=== PATIENT | female | born 1990 | race Caucasian/White ===

== ENCOUNTER 2022-08-27 01:09 | Emergency (ER) | payer OTHER, SELFPAY ==
[2022-08-27 01:16] VITALS: BP 116/78; PULSE 87; RESP 16; TEMP 36.3; O2SAT 98; BMI 31.1
--- NOTE | 2022-08-27 01:36 | ED.ABDPAIN ---
HPI - Abdominal Pain General Chief Complaint: Abdominal Pain Stated Complaint: Abdominal Pain Time Seen by Provider: 08/27/22 01:29 Source: patient Mode of arrival: ambulatory Limitations: no limitations History of Present Illness HPI narrative: Patient otherwise healthy status post cholecystectomy in 2019 comes here for epigastric and left upper abdominal pain since 20:30 with nausea and diarrhea. Fever no chills no urinary symptoms no other family member sick no travel or bad food ingestion Related Data Previous Rx's Medication Instructions Recorded cefuroxime axetil 250 mg tablet 250 mg PO BID 7 days #14 tabs 08/27/22 dicyclomine 20 mg tablet 20 mg PO QID PRN abdominal pain 08/27/22 #20 tabs ondansetron 4 mg disintegrating 4 mg PO Q6-8H PRN nausea and 08/27/22 tablet vomiting #7 tabs Allergies Allergy/AdvReac Type Severity Reaction Status Date / Time acetaminophen [Vicodin] Allergy Unknown vomiting Verified 07/19/19 00:00 doxycycline [DOXYCYCLINE] Allergy Unknown STOMACH Unverified 04/05/20 19:47 PAINS hydrocodone [From VICODIN] Allergy Unknown NAUSEA & Unverified 04/05/20 19:47 VOMITING ibuprofen [IBUPROFEN] Allergy Unknown HIVES, Unverified 04/05/20 19:47 SWELLING, hives nickel [NICKEL] Allergy Unknown RASH Unverified 04/05/20 19:47 Doxycycline Hyclate Allergy Unknown stomach Uncoded 07/19/19 00:00 upset Review of Systems Review of Systems Yes all other systems are reviewed and are negative PMFSH Social History Social History Alcohol intake: never Smoked in Last 30 Days: No Use of substances other than those prescribed or required for medical reasons: No Advance Directives: No Advance Directives Information Provided: Yes Physical Exam ED Vital Signs: Vital Signs - 24 hr 08/27/22 01:16 Temperature 97.4 F Pulse Rate 87 Respiratory Rate 16 Blood Pressure 116/78 Pulse Oximetry 98 Oxygen Delivery Method Room Air BMI result Body Mass Index 31.1 Appearance: Alert. Oriented X3. No acute distress. Eyes: No pallor or icterus ENT: Pharynx normal. Oral Mucosa moist Neck: Normal inspection. Neck supple. CVS: Normal heart rate and rhythm. Pulses normal. Respiratory: No respiratory distress. Equal air entry bilateral, no wheezing/rales/rhonchi Abdomen: Soft , mild tenderness left upper abdomen and epigastric area Bowel sounds are present, no mass palpable, no CVA tenderness Skin: Skin warm and dry. Normal skin color. Normal skin turgor. Extremities: No lower extremity edema. No calf tenderness Neuro: Oriented X 3. Medical Decision Making Medical Decision Making [facility] Narrative: Patient with acute gastroenteritis labs are stable with normal WBC count noticed incidental mild UTI without much bacteria will give her Zofran and Bentyl and Ceftin discharge patient home patient able to take p.o. fluids now Lab Data [facility] Lab Attestation statement: I reviewed the patient's lab results. 08/27/22 01:08/27/22 01: Labs: Lab Results 08/27/22 08/27/22 08/27/22 Range/Units : 01: 03:00 WBC 7.9 (4.8-10.8) X10*3/uL RBC 4.73 (4.20-5.50) X10*6/uL Hgb 14.0 (12.0-16.0) g/dl Hct 41.7 (37.0-47.0) % MCV 88.2 (80.0-98.0) fL MCH 29.6 (27.0-33.0) pg MCHC 33.6 (31.0-35.0) g/dl RDW 12.5 (11.0-16.0) % Plt Count 194 (160-400) X10*3/uL MPV 11.3 (9.4-12.3) fL Absolute Nucleated RBC 0.000 (0.0-0.012) X10*3/uL Nucleated RBC % (auto) 0.0 (0.0-0.2) /100WBC Sodium 139 (135-145) mmol/L Potassium 4.3 (3.3-5.1) mmol/L Chloride 107 (96-108) mmol/L Carbon Dioxide 19 L (22-29) mmol/L Anion Gap 17 (12-20) BUN 13 (9-16) mg/dL Creatinine 0.82 (0.5-1.4) mg/dL Estim Creat Clear Calc 90.3 Estimated GFR > 60 Random Glucose 132 H (60-115) mg/dL Calcium 9.0 (8.4-10.2) mg/dL Total Bilirubin 0.5 (0.0-1.0) mg/dL Direct Bilirubin < 0.2 (0.0-0.5) mg/dL AST 16 (5-31) U/L ALT 19 (0-31) U/L Alkaline Phosphatase 87 (39-117) U/L Total Protein 6.9 (6.5-8.0) g/dL Albumin 4.1 (3.5-5.0) g/dL Lipase 15 (8-78) U/L Urine Color Yellow Urine Appearance Clear Urine pH 5.5 (5.0-9.0) Ur Specific [place] 1.025 (1.005-1.025) Urine Protein Negative (Neg-Trace) mg/dL Urine Glucose (UA) Negative (Negative) mg/dL Urine Ketones 15 (Negative) mg/dL Urine Blood Negative (Negative) Urine Nitrite Negative (Negative) Ur Leukocyte Esterase Small (1+) H (Negative) Urine RBC 0-2 (0-2) /HPF Urine WBC 6-10 H (0-5) /HPF Urine WBC Clumps Ur Squamous Epith Cells 6-10 (0-2) /HPF Ur Transition Epith Cell Ur Renal Epithelial Cell Calcium Oxalate Crystal Leucine Crystals Cystine Crystals Tyrosine Crystals Other Crystals Urine Bacteria None Seen (None Seen) Urine Parasites Bilirubin Casts Epithelial Casts Fatty Casts Hyaline Casts 0-2 (0-2) /LPF Granular Casts Waxy Casts Broad Casts RBC Casts WBC Casts Other Casts Urine Trichomonas Urine Yeast Urine Test (NEGATIVE) 08/27/22 08/27/22 Range/Units 03:00 03:00 WBC (4.8-10.8) X10*3/uL RBC (4.20-5.50) X10*6/uL Hgb (12.0-16.0) g/dl Hct (37.0-47.0) % MCV (80.0-98.0) fL MCH (27.0-33.0) pg MCHC (31.0-35.0) g/dl RDW (11.0-16.0) % Plt Count (160-400) X10*3/uL MPV (9.4-12.3) fL Absolute Nucleated RBC (0.0-0.012) X10*3/uL Nucleated RBC % (auto) (0.0-0.2) /100WBC Sodium (135-145) mmol/L Potassium (3.3-5.1) mmol/L Chloride (96-108) mmol/L Carbon Dioxide (22-29) mmol/L Anion Gap (12-20) BUN (9-16) mg/dL Creatinine (0.5-1.4) mg/dL Estim Creat Clear Calc Estimated GFR Random Glucose (60-115) mg/dL Calcium (8.4-10.2) mg/dL Total Bilirubin (0.0-1.0) mg/dL Direct Bilirubin (0.0-0.5) mg/dL AST (5-31) U/L ALT (0-31) U/L Alkaline Phosphatase (39-117) U/L Total Protein (6.5-8.0) g/dL Albumin (3.5-5.0) g/dL Lipase (8-78) U/L Urine Color Cancelled Urine Appearance Cancelled Urine pH Cancelled (5.0-9.0) Ur Specific [place] Cancelled (1.005-1.025) Urine Protein Cancelled (Neg-Trace) mg/dL Urine Glucose (UA) Cancelled (Negative) mg/dL Urine Ketones Cancelled (Negative) mg/dL Urine Blood Cancelled (Negative) Urine Nitrite Cancelled (Negative) Ur Leukocyte Esterase Cancelled (Negative) Urine RBC Cancelled (0-2) /HPF Urine WBC Cancelled (0-5) /HPF Urine WBC Clumps Cancelled Ur Squamous Epith Cells Cancelled (0-2) /HPF Ur Transition Epith Cell Cancelled Ur Renal Epithelial Cell Cancelled Calcium Oxalate Crystal Cancelled Leucine Crystals Cancelled Cystine Crystals Cancelled Tyrosine Crystals Cancelled Other Crystals Cancelled Urine Bacteria Cancelled (None Seen) Urine Parasites Cancelled Bilirubin Casts Cancelled Epithelial Casts Cancelled Fatty Casts Cancelled Hyaline Casts Cancelled (0-2) /LPF Granular Casts Cancelled Waxy Casts Cancelled Broad Casts Cancelled RBC Casts Cancelled WBC Casts Cancelled Other Casts Cancelled Urine Trichomonas Cancelled Urine Yeast Cancelled Urine Test NEGATIVE (NEGATIVE) Medications Administered Discontinued Medications Generic Name Dose Route Start Last Admin Trade Name Freq PRN Reason Stop Dose Admin Al Hydroxide/Mg Hydroxide 30 ml 08/27/22 02:43 08/27/22 02:49 Magnesium Hydrox/Alum Hydrox 30 Ml Oral.Susp PO 08/27/22 02:44 30 ml ONCE ONE Administration Cefuroxime Axetil 250 mg 08/27/22 04:07 08/27/22 04:17 Cefuroxime Axetil 250 Mg Tablet PO 08/27/22 04:08 250 mg ONCE ONE Administration Dicyclomine HCl 20 mg 08/27/22 04:07 08/27/22 04:17 Dicyclomine Hcl 10 Mg Capsule PO 08/27/22 04:08 20 mg ONCE ONE Administration Famotidine 20 mg 08/27/22 01:36 08/27/22 01:54 Famotidine/Pf 20 Mg/2 Ml Vial IVPUSH 08/27/22 01:37 20 mg ONCE ONE Administration Sodium Chloride 1,000 mls @ 999 mls/hr 08/27/22 01:36 08/27/22 02:49 Ns IV 08/27/22 02:36 Infused .Q1H1M ONE Infusion Lidocaine HCl 15 ml 08/27/22 02:43 08/27/22 02:49 Lidocaine Hcl Viscous 2 % 15 Ml Solution MUCOUS MEM 08/27/22 02:44 15 ml ONCE ONE Administration Ondansetron HCl 4 mg 08/27/22 03:10 08/27/22 03:16 Ondansetron Hcl 4 Mg/2 Ml Vial IVPUSH 08/27/22 03:11 4 mg ONCE ONE Administration Discharge Plan Discharge Clinical Impression: Gastroenteritis, UTI (urinary tract infection) Patient Disposition: Home, Self-Care Instructions: Urinary Tract Infection in Women (ED), Gastroenteritis (ED) Additional Instructions: Drink plenty of fluids Med for nausea and antibiotic for urinary tract infection as prescribed Follow with PCP if not better Prescriptions: New cefuroxime axetil 250 mg tablet 250 mg PO BID 7 Days Qty: 14 0RF dicyclomine 20 mg tablet 20 mg PO QID PRN (Reason: abdominal pain) Qty: 20 0RF ondansetron 4 mg tablet,disintegrating 4 mg PO Q6-8H PRN (Reason: nausea and vomiting) Qty: 7 0RF
[2022-08-27 01:37] LABS: Hematocrit 41.7 % (37.0-47.0); Mean Corpuscular HGB Conc 33.6 g/dl (31.0-35.0); Mean Corpuscular Hemoglobin 29.6 pg (27.0-33.0); Mean Corpuscular Volume 88.2 fL (80.0-98.0); Mean Platelet Volume 11.3 fL (9.4-12.3); Platelet Count 194 X10*3/uL (160-400); Red Blood Count 4.73 X10*6/uL (4.20-5.50); Red Cell Distribution Width 12.5 % (11.0-16.0); White Blood Count 7.9 X10*3/uL (4.8-10.8)
[2022-08-27 01:52] LABS: Alanine Aminotransferase 19 U/L (0-31); Albumin Level 4.1 g/dL (3.5-5.0); Alkaline Phosphatase 87 U/L (39-117); Anion Gap 17 (12-20); Aspartate Amino Transferase 16 U/L (5-31); Bilirubin Direct < 0.2 mg/dL (0.0-0.5); Bilirubin Total 0.5 mg/dL (0.0-1.0); Blood Urea Nitrogen 13 mg/dL (9-16); Carbon Dioxide 19 mmol/L (22-29); Chloride 107 mmol/L (96-108); Creatinine Clr Calc Pharmacy 90.3; Estimated Glomerular Filt Rate > 60; Glucose Random 132 mg/dL (60-115); Lipase 15 U/L (8-78); Potassium 4.3 mmol/L (3.3-5.1); Sodium 139 mmol/L (135-145); Total Protein 6.9 g/dL (6.5-8.0)
[2022-08-27] MEDS: Famotidine/PF 20 MG/2 ML VIAL IVPUSH (01:54)
[2022-08-27] MEDS: 0.9 % Sodium Chloride 1,000 ML 999 ML IV (01:54)
[2022-08-27] MEDS: Lidocaine HCl Viscous 2 % 15 ML SOLUTION MUCOUS MEM (02:49)
[2022-08-27] MEDS: Magnesium Hydrox/Alum Hydrox 30 ML ORAL.SUSP PO (02:49)
[2022-08-27 03:11] LABS: UPreg QC Valid YES; Urine Pregnancy NEGATIVE (NEGATIVE)
[2022-08-27] MEDS: ondansetron HCL 4 MG/2 ML VIAL IVPUSH (03:16)
--- NOTE | 2022-08-27 03:18 | PC.NURSE ---
pt reassessed after the administration of medications. pt c/o no pain relief and mild to moderate nausea. Dr. simon. shey ivp administration will continue to monitor
[2022-08-27 03:37] LABS: Appearance Urine Clear; Color Urine Yellow; Glucose Urine UA Negative (Negative); Leukocyte Esterase Urine Small (1+) (Negative); Nitrite Urine Negative (Negative); PH 5.5 (5.0-9.0); Specific Gravity - Urine 1.025 (1.005-1.025); UMIC TRIGGER UACC YES; Urine Blood Negative (Negative); Urine Ketones 15 mg/dL (Negative); Urine Protein Negative (Neg-Trace)
[2022-08-27 03:40] LABS: Bacteria Urine None Seen (None Seen); Hyaline Casts Urine 0-2 /LPF (0-2); RBC Urine 0-2 /HPF (0-2); UACC Culture Trigger YES
[2022-08-27] MEDS: Dicyclomine HCl 10 MG CAPSULE 20 MG PO (04:17)
--- NOTE | 2022-08-27 04:27 | PC.NURSE ---
pt reassessed reported mild nausea w/o vomiting and upper abd pain
--- NOTE | 2022-08-27 05:04 | PC.NURSE ---
po challenged started
== END 2022-08-27 05:22 | disposition home or self-care (01) ==
PROVIDERS: Emergency Provider Internal Medicine; PCP Internal Medicine
DX: K52.9 Noninfective gastroenteritis and colitis, unspecified (principal); N39.0 Urinary tract infection, site not specified
CPT/HCPCS: 36415; 80053; 81001; 81025; 82248; 83690; 85027; 87086; 96361; 96374; 96375; 99284; J2405

== ENCOUNTER 2023-07-10 10:00 | Outpatient (RCR) | payer OTHER, SELFPAY | END 2023-09-04 07:37 | disposition home or self-care (01) | LOC: HO.PT 10:00 | PROVIDERS: PCP Physician Assistant; Visit Provider Physician Assistant | DX: M54.16 Radiculopathy, lumbar region (principal) | CPT/HCPCS: 97110; 97140; 97161; 97535 ==

== ENCOUNTER 2023-07-27 14:35 | Outpatient (REF) | payer OTHER, SELFPAY ==
--- NOTE | ~2023-07-27 | XR_ITS ---
EXAMINATION: XR LUMBOSACRAL SPINE CLINICAL INFORMATION: Low back pain with left leg radiculopathy COMPARISON: None available. TECHNIQUE: Three views of the lumbosacral spine. FINDINGS: There is straightening of lumbar lordosis. There are 5 nonrib-bearing vertebral bodies and lumbar spine. There is mild deformities of T12 and L1 with marginal spurring and prominent Schmorl's hernia seen at the T11, T12, L1, L2. There is marginal spurring at the endplates of L2-L5 as well but disc spaces are preserved and there is no spondylolysis or listhesis. Pedicles are intact and sacroiliac joints unremarkable. Soft tissues are normal. XR/XR lumbar spine 2-3V IMPRESSION: Mild degenerative changes, most likely muscle spasm
== END 2023-07-27 14:36 | disposition home or self-care (01) ==
LOC: HO.XRAY 14:35
PROVIDERS: PCP Physician Assistant; Visit Provider Physician Assistant
DX: M54.50 Low back pain, unspecified (principal)
CPT/HCPCS: 72100

== ENCOUNTER 2023-08-14 19:07 | Outpatient (REF) | payer OTHER, SELFPAY ==
--- NOTE | ~2023-08-14 | MR_ITS ---
EXAMINATION: MR LUMBAR SPINE WITHOUT CONTRAST CLINICAL INFORMATION: A 33-year-old with left leg pain. Self-reported low back and left leg pain. COMPARISON: 07/27/2023 X-rays. TECHNIQUE: MRI of the lumbar spine was obtained using routine sequences without contrast. FINDINGS: CORONAL ALIGNMENT: Khfe-gf-wmnmypmk thoracolumbar levocurvature, convex to the left at T12-L1. SAGITTAL ALIGNMENT: There is 2 mm of retrolisthesis at L3-L4 and there is trace retrolisthesis at L4-L5 with otherwise normal lumbar lordotic curvature. LUMBOSACRAL JUNCTION: Normal. VERTEBRAL BODIES: Redemonstrated is mild chronic anterior wedging of the L1 vertebral body, and zfqx-ig-mzjlyuyk chronic anterior wedging of the T12 vertebral body, similar to the previous X-rays. Otherwise, vertebral body heights are well maintained. There are no acute or non-healed fractures. DISC SPACES AND ENDPLATES: There is moderate intervertebral disc space height loss at L5-S1 with disc desiccation. Uzug-pt-iwxpktfu disc space height loss at L4-L5 with disc desiccation. Mild disc volume loss also noted L3-L4 with disc desiccation and minor anterior marginal endplate spurring. There is a tiny Schmorl's node along the inferior endplate of L2 and there is minor spondylosis. There is mild disc volume loss with disc desiccation, Schmorl's nodes and spondylosis at L1-L2. There are Schmorl's nodes noted anteriorly at T12-L1, with anterior marginal spurring at this level, and there is a Schmorl's node along the superior endplate of T12, with anterior marginal endplate spurring at T11-T12. There is a partially imaged Schmorl's node along the superior endplate of T11 with anterior marginal endplate spurring of the superior endplate. In conjunction with the above findings, these findings are consistent with Scheuermann's disease. SPINAL CANAL: No abnormal developmental findings. BONE MARROW: No significant marrow-replacing process or bone marrow edema. CONUS MEDULLARIS: Terminates at T12. Morphology and signal is normal. INTRADURAL NERVE ROOTS: Within normal limits. L5-S1: Central to left subarticular disc herniation, with a caudally migrated extruded component in the subarticular zone, impinging on the left S1 nerve root with posterior displacement of the nerve root and marked narrowing of the left subarticular recess, with encroachment on the lateral recess as well. Mild indentation of the ventral thecal sac is noted without significant central spinal canal stenosis. There is mild facet arthropathy bilaterally with minor foraminal narrowing on the left. L4-L5: Mild retrolisthesis is noted with concentric disc bulging and a superimposed esrnubg-lv-phwpu paramedian extruded disc herniation, with mild cephalad migration, also encroaching on the right inferior neural foramen. Mild flattening of the dural sac is noted without significant canal stenosis. Mild facet hypertrophic changes are noted bilaterally with minimal foraminal narrowing on the right. Disc protrusion contacts the foraminal segment of the right L4 nerve root sleeve. L3-L4: Retrolisthesis, disc bulging, and a superimposed right-sided foraminal/extraforaminal disc herniation with an annular fissure noted impinges on the exiting right L3 nerve root. Mild facet hypertrophic change bilaterally without canal stenosis. Igme-hb-uxzrocgq right-sided foraminal narrowing noted. L2-L3: Mild left posterolateral disc protrusion. Mild facet hypertrophic change on the left. No canal or foraminal stenosis. L1-L2: Small right paramedian disc protrusion without neural impingement. Small left foraminal disc protrusion without neural impingement. No facet arthrosis, canal, or foraminal stenosis. T12-L1: Small left subarticular to inferior foraminal disc protrusion without neural impingement. Small right paramedian disc protrusion. No facet arthrosis, canal or foraminal stenosis. PARAVERTEBRAL AND INCLUDED EXTRASPINAL SOFT TISSUES: The visualized paravertebral soft tissues and included retroperitoneal structures are unremarkable within the limitations of the exam. MR/MR lumbar spine wo con IMPRESSION: 1. Uyky-zt-ailqqyun thoracolumbar levocurvature, convex to the left at T12-L1 with mild retrolisthesis at L3-L4 and trace retrolisthesis at L4-L5. 2. Multilevel discogenic degenerative changes, with multilevel spondylosis and disc bulging, with a invnblg-ss-jtlp subarticular extruded disc herniation with caudal migration at L5-S1 impinging on the left S1 nerve root. 3. Mqlduwv-ba-musaf paramedian extruded disc herniation at L4-L5 with disc bulging contacting the foraminal segment of the right L4 nerve root. 4. Right lateral foraminal/extraforaminal disc herniation at L3-L4 impinging on the exiting right L3 nerve root. 5. Thoracolumbar Scheuermann's disease as described above.
== END 2023-08-14 19:08 | disposition home or self-care (01) ==
LOC: HO.MRI 19:07
PROVIDERS: PCP Physician Assistant; Visit Provider Physician Assistant
DX: M54.50 Low back pain, unspecified (principal)
CPT/HCPCS: 72148

== ENCOUNTER 2023-09-15 13:54 | Outpatient (AMB) | payer OTHER, SELFPAY ==
--- NOTE | 2023-09-15 14:12 | A.SPINEOV_ITS ---
Intake Intake Visit Reasons: herniated disc/second opinion Intake Note: Ms. Davis is here today for Sciatic nerve pain that radiates down to behind her knees. Business Services Intern Required: No Allergies acetaminophen [Vicodin] Allergy (Unknown, Verified 07/19/19 00:00) vomiting doxycycline [DOXYCYCLINE] Allergy (Unknown, Unverified 04/05/20 19:47) STOMACH PAINS hydrocodone [From VICODIN] Allergy (Unknown, Unverified 04/05/20 19:47) NAUSEA & VOMITING ibuprofen [IBUPROFEN] Allergy (Unknown, Unverified 04/05/20 19:47) HIVES, SWELLING, hives nickel [NICKEL] Allergy (Unknown, Unverified 04/05/20 19:47) RASH Doxycycline Hyclate Allergy (Unknown, Uncoded 07/19/19 00:00) stomach upset Assessment & Plan Assessment & Plan (1) Lumbar disc herniation: Code(s): M51.26 - Other intervertebral disc displacement, lumbar region Plan Dear Kiah, I saw Mrs. Davis in the office today for evaluation. She is a 33-year-old female who has had on and off issues with her back for years, but for the last 2 years or so she has had intermittent radiculopathy going down the back of her left leg into her hamstring toward her calf. At times the pain can be manageable but at other times it can be severe. She would rate it at its worst at 9/10. She tried conservative treatment in the form of tincture of time, activity modifications, swrc-njz-pffdifd medications as needed as well as a trial of physical therapy. Physical therapy only seemed to aggravate things. She has a 2-year-old at home, in often she is unable to get on the [place] even play with the child because the pain can be intensified so much by sitting in an uncomfortable position that she is reluctant to do it. She is very frustrated with her quality of life as she has not able to do many of the activities that she finds meaningful. She is here today for 2nd opinion on a herniated disc seen on MRI at [facility] imaging. PMH: History of cholecystectomy, , eye correction surgery in 1989. Social hx: She does not smoke, does not use recreational drugs or alcohol Medications: Wellbutrin, Zyrtec, Singulair, albuterol, multivitamin, stool softener Allergies: Ibuprofen gave her hives and a borderline anaphylactic reaction when she took it years ago, allergy to nickel and seasonal allergies Physical exam: Awake alert oriented no acute distress, gait is normal, strength and reflexes are normal Imaging review: Lumbar MRI done at [facility] in July 2023 reveals a left-sided herniated disc fragment at L5-S1 compressing the left S1 nerve root Impression: 33-year-old female presents for evaluation of a left S1 radiculopathy that has been intermittent but steadily increasing and worsening in intensity over the last few years. It is now affecting her quality of life to the point where she isn't even able to do simple things with her 2-year-old child. She is interested in the idea of surgery. We discussed a left L5-S1 microdiskectomy. Dr. Saab and I reviewed the procedure length including risks and benefits. We quoted 90% success rate for the surgery. Pt was given risk and benefits of surgery including but not limited to infection, hematoma , nerve injury,durotomy, weakness,bowel/bladder injury, persistent pain, recurrent disc herniation as well as the option to continue with conservative treatment and patient wishes to proceed with surgery. Pt is aware they should stop their motrin, aspirin 7 days prior to surgery. All questions were answered to the best of our ability. If there is anything about this patients medical history that we have overlooked or concerns you have about us proceeding with surgery we would appreciate any input you can offer. Thank you for allowing us to care for your patient. The total time spent with this visit with this patient was 45 minutes reviewing history, physical exam, lumbar imaging review, and implementation of treatment plan or further diagnostic testing Crow Saab MD,PhD [facility] Coding Level of Care Code New Pt Level 4 (56841) Diagnoses Lumbar disc herniation M51.26
== END 2023-09-15 15:14 | disposition home or self-care (01) ==
PROVIDERS: PCP Physician Assistant; Visit Provider Physician Assistant
DX: M51.26 Other intervertebral disc displacement, lumbar region (principal)
CPT/HCPCS: 99204

== ENCOUNTER → 2023-09-15 13:54 | Outpatient (BNVA) | payer OTHER, SELFPAY | PROVIDERS: PCP Physician Assistant; Visit Provider Physician Assistant ==

== ENCOUNTER 2023-11-05 09:00 | Day surgery (SDC) | payer OTHER, SELFPAY ==
[2023-10-29 14:12] VITALS: BMI 22.9
[2023-11-05] VITALS (11 sets, daily range): BP systolic 99–113; BP diastolic 57–72; PULSE 61–86; RESP 12–16; TEMP 36.3; O2SAT 95–99
--- NOTE | ~2023-11-05 | FL_ITS ---
EXAMINATION: XR FLUOROSCOPY WITH IMAGES CLINICAL INFORMATION: L5-S1 microlumbar discectomy COMPARISON: MRI lumbar spine 08/14/2023 TECHNIQUE: Fluoroscopy Supervised By: Dr. Saab. Fluoroscopy Time: 2.9 seconds. Cumulative Dose: 0.6577 mGy. DAP: 1.888 Gycm2. Images: 1. FINDINGS: With the patient in a prone position, metallic instrument indicates the L5 vertebral body. FL/FL guidance in OR IMPRESSION: Fluoroscopic guidance was provided for Dr. Saab for L5-S1 microlumbar discectomy.
--- NOTE | 2023-11-05 07:30 | MHC.SHP ---
Pre-Procedural Eval Section A - 24 Hr Update-Section A only Date of Service: 11/05/23 The patient is an INPATIENT: No Changes since office visit: No Cold of Flu in the past 2 weeks, No New Medical Problems, No Changes in Medication and No Patient answered all questions The patient has been examined within 24 hours of the surgical procedure. The History & Physical has been completed within 30 days and I have reviewed it.: No Section B - Complete if H&P > 30 days Chief Complaint: Other intervertebral disc displacement, lumbar reg Allergies: Allergies Allergy/AdvReac Type Severity Reaction Status Date / Time acetaminophen [Vicodin] Allergy Unknown vomiting Verified 07/19/19 00:00 doxycycline [DOXYCYCLINE] Allergy Unknown STOMACH Unverified 04/05/20 19:47 PAINS hydrocodone [From VICODIN] Allergy Unknown NAUSEA & Unverified 04/05/20 19:47 VOMITING ibuprofen [IBUPROFEN] Allergy Unknown HIVES, Unverified 04/05/20 19:47 SWELLING, hives nickel [NICKEL] Allergy Unknown RASH Unverified 04/05/20 19:47 Doxycycline Hyclate Allergy Unknown stomach Uncoded 07/19/19 00:00 upset Review of Systems Sugical H&P ROS: Negative: Constitution, Cardiovascular, Respiratory, Neurological, Psychiatric, Hem-Onc, Allergic/Immunologic, Gastrointestinal, Genitourinary, Musculoskeletal, Integumentary, Endocrine and Eyes/Ears/Nose/Throat Exam Surgical H&P Exam: Not Evaluated: HEENT, Not Evaluated: Heart, Not Evaluated: Lungs, Not Evaluated: Extremities, Not Evaluated: Abdomen, Not Evaluated: Skin and Not Evaluated: Neurological Plan Diagnosis/Plan: Unchanged left L5-S1 microdiskectomy Time Spent With Patient Time: Total time managing care of this patient today _5___ minutes.
--- NOTE | 2023-11-05 10:20 | HO.ANESPROP2 ---
[facility] Active Problems Active Problems: All Active Problems Lumbar disc herniation (Acute) Past Medical History Medical History (Updated 10/29/23 @ 13:44 by Nicole Fay RN) Degenerative arthritis Back pain Depression Asthma Family History Family history of problems with anesthesia: No Surgical History Surgical History (Updated 10/29/23 @ 13:44 by Nicole Fay RN) Hx of wisdom tooth extraction Hx of eye surgery Hx of section Hx of cholecystectomy History of Problems with Anesthesia: No Social History Social History Are you a primary point of care technician to a significant other at home: No Do you presently have visiting nurse or other home services: No Alcohol intake: never Patient Tobacco Use Status: Never used Tobacco Use of substances other than those prescribed or required for medical reasons: No Have you been hit, kicked, punched, or otherwise hurt by someone within the past year? If so, by whom?: No Are you DNR?: No Advance Directives: No Advance Directives Information Provided: Yes Advance Directives on File: No Recently lost weight without trying: No Eating poorly because of decreased appetite: No Nutrition Risks: No Nutritional Risk Patient : No : No Poor oral hygiene: No Meds Allergies Allergy/AdvReac Type Severity Reaction Status Date / Time acetaminophen [Vicodin] Allergy Unknown vomiting Verified 07/19/19 00:00 doxycycline [DOXYCYCLINE] Allergy Unknown STOMACH Unverified 04/05/20 19:47 PAINS hydrocodone [From VICODIN] Allergy Unknown NAUSEA & Unverified 04/05/20 19:47 VOMITING ibuprofen [IBUPROFEN] Allergy Unknown HIVES, Unverified 04/05/20 19:47 SWELLING, hives nickel [NICKEL] Allergy Unknown RASH Unverified 04/05/20 19:47 Doxycycline Hyclate Allergy Unknown stomach Uncoded 07/19/19 00:00 upset Active Medications: Current Medications Cefazolin Sodium/Dextrose (Ancef) 2 gm in 50 mls @ 100 mls/hr IV PREOP ONE Stop: 11/05/23 10:26 Home Medications ?Medication ?Instructions ?Recorded ?Confirmed ?Last Taken ?Type bupropion HCl 300 mg 24 hr tablet, 300 mg PO DAILY 09/15/23 10/29/23 Unknown History extended release albuterol sulfate 90 mcg/actuation 2 puff inhalation Q4H PRN 10/29/23 10/29/23 Unknown History aerosol inhaler Shortness Of Breath Or Wheezing cetirizine 10 mg tablet (Zyrtec) 10 mg PO DAILY 10/29/23 10/29/23 Unknown History docusate sodium 100 mg capsule 100 mg PO BEDTIME 10/29/23 10/29/23 Unknown History (Colace) montelukast 10 mg tablet 10 mg PO BEDTIME 10/29/23 10/29/23 Unknown History multivitamin 1 tab PO DAILY 10/29/23 10/29/23 Unknown History norethindrone 1 mg-ethinyl 1 tab PO DAILY 10/29/23 10/29/23 Unknown History estradiol 20 mcg (21)-iron 75 mg (7) tablet (08/08 (28)) Exam Height,Weight and Vital Signs: Height 5 ft 2 in Weight 56.699 kg Airway Mallampati Class: II TM Dist: >3cm Neck ROM: Full Assessment and Plan Assessment Anesthesia Assessment: Anesthesia Plan Discussed and Chart Reviewed Final Anesthetic Review Family History of Problems with Anesthesia: No History of Problems with Anesthesia: No NPO: Yes ASA Class: II Final Preanesthetic Review: No Changes in Pt Med Stat, Meds/Allgs Chart Reviewed, Consent Obtained/Reviewed and Anes Risks/Benef Reviewed Patient Risk: Intermediate Procedure Risk: Intermediate Anesthetic Plan Anesthetic Plan: GA Disposition: Standard PACU
[2023-11-05 10:28] LABS: UPreg QC Valid YES; Urine Pregnancy NEGATIVE (NEGATIVE)
[2023-11-05] MEDS: methocarbamoL 750 MG TABLET PO (10:51)
[2023-11-05] MEDS: Gabapentin 300 MG CAPSULE PO (10:52)
--- NOTE | 2023-11-05 13:37 | PM.DS ---
DS: Providers Provider Date of Service: 11/05/23 Primary care physician: DONNELL Carlos DS: Summary Time Attestation Discharge Coordination Time (in mins): 15 Quality: Safe Use of Opioids Does Pt have an Active Cancer Diagnosis on the Problem List?: No Quality: Stroke Does the patient have a stroke diagnosis?: No Physical Exam Vital Signs: Vital Signs: BMI result Body Mass Index 22.9 DS: Data Data Completed and Pending Labs on day of discharge: Laboratory Results - last 24 hr 11/05/23 09:58 Urine Test NEGATIVE Discharge Plan Discharge Patient Disposition: Home, Self-Care Referrals: Kiah Castro PA [Primary Care Provider] - 1 Week Discharge Medications: New oxycodone 5 mg tablet 5 mg PO Q8H PRN (Reason: severe pain (scale score 7-10)) Qty: 21 0RF Rx Instructions: Partial Fill upon patient request. Continued multivitamin Tablet 1 tab PO DAILY cetirizine [Zyrtec] 10 mg Tablet 10 mg PO DAILY norethindrone-e.estradiol-iron [Junel FE 08/08 (28)] 1 mg-20 mcg (21)/75 mg (7) tablet 1 tab PO DAILY docusate sodium [Colace] 100 mg Capsule 100 mg PO BEDTIME montelukast 10 mg tablet 10 mg PO BEDTIME albuterol sulfate 90 mcg/actuation HFA aerosol inhaler 2 puff INHALATION Q4H PRN (Reason: Shortness Of Breath Or Wheezing) bupropion HCl 300 mg tablet extended release 24 hr 300 mg PO DAILY Discharge Orders: Discharge Order (Routine); Ordered 11/05/23 Ordered By: Ilir Carolina Diet: Advance to usual diet Activity on Discharge: As tolerated Activity Restrictions/Additional Instructions: After your spinal surgery we ask you to observe the following restrictions/guidelines: Activity: It is normal to feel some discomfort as you increase your activity, but that will improve with time. We ask you avoid heavy lifting or acitivities that cause pain. As a general rule, 8lbs is a safe limit for lifting right after surgery. Walk as much as you feel comfortable but not to exhaustion. You will feel extra tired the first few days after surgery. Stay well hydrated. It is OK to walk up and down stairs You may return to driving when you are off narcotics (such as vicodin, oxycodone, dilaudid, etc), and you are back to normal functional capacity. If you have any concerns please check with office before driving. Return to work is specific to each patient and each surgery, so please speak with your doctor/PA at first follow up. Please bring paperwork such as FMLA at that time if you need it filled out. Medications: We will give you a short supply of narcotics after surgery (usually one weeks worth). If you need more please call the office but do not use more than prescribed. You will need to give our office 48 hours notice if you need narcotics refilled and we do not fill narcotics on weekends or evenings. If you are on a narcotic, it is a good idea to take a stool softener such as colace or senna to avoid constipation If you take blood thinner such as aspirin, Plavix, Coumadin, Effient, Eliquis etc for conditions such as Afib, DVT, Pulmonary embolus, coronary disease, stents etc please speak with your surgeon about specific details as to when you can resume these medications. Follow up: Please call the office, , after surgery to arrange a 3 week follow up for wound check. Wound Care: You may remove your dressing on the first day after surgery. ?You may ?leave open to air. Please do not remove the steri strips underneath. they will fall off on their own in one week. IT IS NORMAL FOR THE WOUND TO OOZE OR BE BLOODY FOR A FEW DAYS AFTER SURGERY. ?IF THIS HAPPENS JUST PLACE NEW DRESSING OVER IT TO AVOID STAINING CLOTHES. You may shower on post op day # 1 We ask that you do not let the water soak the wound. If it does get wet, just towel dry lightly. Please do not scrub your incision or place any type of chemical/ointment on the wound. No tub baths, pools or jacuzzis for one month. If you have any leaking or redness from your wound, or fevers, please call the office. Print Language: Lebanese
--- NOTE | 2023-11-05 13:38 | P.OP_ITS ---
Operative Note Operative Note Date of Service: 11/05/23 Narrative: Preoperative diagnosis: Left S1 lumbar radiculopathy due to disc herniation Postoperative diagnosis: Same Procedure: Left L5-S1 lumbar microdiskectomy with microscope Surgeon: Ben Saab MD, PhD Hiv Prevention Specialist: DONNELL Mendoza This patient is suffering from a left lumbar radiculopathy due to an L5-S1 disc herniation compressing the left S1 nerve root. The patient was offered a lumbar microdiskectomy to decompress the nerve root. The procedure complications were explained. The patient was consented. The patient was brought to the operating room and endotracheally intubated. The patient was turned in a prone position on the Gary frame. Prepping and draping was done followed by time-out. A mid lumbar incision was made followed by release of the paravertebral muscles on the left side to expose the L5-S1 interspace. An intraoperative x-rays obtained to confirm the correct level. The microscope was brought in. A L5 laminotomy was done followed by opening of the flavum ligament. The S1 nerve root was identified and retracted medially to expose the L5-S1 disc space. I was only able to identify a small disc bulge which I removed. The large extruded component had resolved. The S1 nerve root was decompressed adequately. The microscope was removed. Marcaine was injected intramuscularly.The incision was closed in two layers. Steri-Strips used to approximate seizure. An op-site were taken there was used to cover the incision. All sponge and needle counts were correct. Patient was extubated and transported in stable condition to recovery room. this procedure was done with the aid of a physician commercial lines account assistant who performed the initial exposure until the microscope was brought in and performed the closure of the incision. Anesthesia: General Blood loss: 10 mL Complications: None Specimen: None Surgical time: 45 minutes Disposition: Discharge home
[2023-11-05] MEDS: fentaNYL citrate/PF 100 MCG/2 ML VIAL 50 MCG IVPUSH ×2 (14:07→14:28)
[2023-11-05] MEDS: Ondansetron ODT 4 MG TAB.RAPDIS TRANSLINGU (16:37)
== END 2023-11-05 15:39 | disposition home or self-care (01) ==
PROVIDERS: Anesthesiology; PCP Physician Assistant; Visit Provider Neurological Surgery
PROC: (CPT 63030; principal; 2023-11-05 12:00)
DX: M51.26 Other intervertebral disc displacement, lumbar region (principal); M51.16 Intervertebral disc disorders with radiculopathy, lumbar region; M19.90 Unspecified osteoarthritis, unspecified site; J45.909 Unspecified asthma, uncomplicated; F32.A Depression, unspecified; Z79.51 Long term (current) use of inhaled steroids; Z79.899 Other long term (current) drug therapy; Z88.8 Allergy status to other drugs, medicaments and biological substances; Z88.1 Allergy status to other antibiotic agents; Z88.6 Allergy status to analgesic agent; Z98.890 Other specified postprocedural states
CPT/HCPCS: 63030; 81025; J0131; J0690; J1100; J2250; J2405; J2704; J3010

== ENCOUNTER → 2023-11-05 09:00 | Outpatient (BNV) | payer OTHER, SELFPAY | PROVIDERS: PCP Physician Assistant; Visit Provider Neurological Surgery | DX: M51.26 Other intervertebral disc displacement, lumbar region (principal) | CPT/HCPCS: 63030; 99499 ==

== ENCOUNTER 2023-11-26 15:36 | Outpatient (AMB) | payer OTHER, SELFPAY ==
--- NOTE | 2023-11-26 15:38 | HO.SPINEOV ---
Intake Visit Reasons: 1st post op Intake Note: Ms. Davis is here today for her 1st post-op appointment. 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 Allergies doxycycline [DOXYCYCLINE] Allergy (Unknown, Verified 11/05/23 10:50) STOMACH PAINS hydrocodone [From VICODIN] Allergy (Unknown, Verified 11/05/23 10:50) NAUSEA & VOMITING ibuprofen [IBUPROFEN] Allergy (Unknown, Verified 11/05/23 10:50) HIVES, SWELLING, hives nickel [NICKEL] Allergy (Unknown, Verified 11/05/23 10:50) RASH Doxycycline Hyclate Allergy (Unknown, Uncoded 07/19/19 00:00) stomach upset Assessment & Plan Assessment & Plan (1) Lumbar disc herniation: Code(s): M51.26 - Other intervertebral disc displacement, lumbar region Category: Medical Plan Mrs Davis is three weeks out from her L5-S1 microdiskectomy. The pain in her left leg is essentially gone. She will occasionally get a flicker of the symptoms but nothing severe. She has some back soreness and stiffness. Her wound is healed up nicely. At this point she is returned to work and otherwise doing great. We discussed activity guidelines, restrictions and expectations after lumbar microdiskectomy. I told her to give it another 2-3 weeks before she lifts up her 2-year-old child. She can follow up with us on an as-needed basis. Crow Saab MD,PhD [facility] Coding Level of Care Code Global (36594) Diagnoses Lumbar disc herniation M51.26
== END 2023-11-26 16:06 | disposition home or self-care (01) ==
PROVIDERS: PCP Physician Assistant; Visit Provider Physician Assistant
DX: M51.26 Other intervertebral disc displacement, lumbar region (principal)
CPT/HCPCS: 99024

== ENCOUNTER → 2023-11-26 15:36 | Outpatient (BNVA) | payer OTHER, SELFPAY | PROVIDERS: PCP Physician Assistant; Visit Provider Physician Assistant ==

== ENCOUNTER 2024-08-02 10:50 | Outpatient (AMB) | payer OTHER, SELFPAY ==
--- NOTE | 2024-08-02 10:57 | MHC.PC.OV ---
Vital Signs 08/02/24 11:18 Height 5 ft 1 in Weight 152 lb BMI 28.7 BP 102/66 Blood Pressure Location Rt brachial Position Sitting Respiration 12 Pulse 68 Pulse Source Pulse Oximeter Pulse Oximetry (%) 98 Oxygen Delivery Method Room Air Intake Visit Reasons: EST CARE Intake Note: new patient to establish care Voice Teacher Required: No Allergies doxycycline [DOXYCYCLINE] Allergy (Unknown, Verified 08/02/24 11:40) STOMACH PAINS hydrocodone [From VICODIN] Allergy (Unknown, Verified 08/02/24 11:40) NAUSEA & VOMITING ibuprofen [IBUPROFEN] Allergy (Unknown, Verified 08/02/24 11:40) HIVES, SWELLING, hives nickel [NICKEL] Allergy (Unknown, Verified 08/02/24 11:40) RASH Doxycycline Hyclate Allergy (Unknown, Uncoded 08/02/24 11:40) stomach upset Medication List - Last Reconciled 08/02/24 by Susan Patel, SUPERINTENDENT LAUNDRY- albuterol sulfate 90 mcg/actuation 2 puffs inhalation Q4H PRN bupropion HCl XL 300 mg PO DAILY cetirizine (Zyrtec) 10 mg PO DAILY docusate sodium (Colace) 100 mg PO BEDTIME montelukast 10 mg PO BEDTIME multivitamin 1 tab PO DAILY norethindrone-e.estradiol-iron 1 mg-20 mcg (21)/75 mg (7) (08/08 (28)) 1 tab PO DAILY semaglutide (weight loss) (Wegovy) mg subcut Tobacco use date assessed: 08/02/24 Dental Screening Dental Screen Date: 08/02/24 Did you have a dental visit in the last 12 months?: Yes Did you have a dental problem in the last 6 months where you did not have access to dental care?: No Was dental information given to patient?: Patient has dentist HPI HPI Comments History of Present Illness Details 34 y/o F with asthma, obesity, MDD, BING Status post lumbar diskectomy 11/06/2024, status post cholecystectomy, Social with 1 son, Paddy age 2,, works at [employer] in [place] Family history father with high cholesterol and anxiety, mother with stroke, depression and anxiety Health Maintenance Tdap 2021 Flu declined Echo 03/31/2013 Pap smear 09/25/2016 Specialists [facility] specialists Previous PCP [facility] Patience CPE due 03/18/25 The patient is a 34-year-old female presenting with the need to establish care for her existing chronic conditions. She has a history of asthma, which she reports is well-controlled with montelukast (Singulair) and occasional use of an albuterol inhaler, especially in colder weather. Her asthma and allergies require consistent management due to severe reactions to multiple allergens. She underwent a discectomy in October and continues to experience back pain post-surgery. She expresses concern about needing further imaging or additional surgery. Her mental health history includes a longstanding diagnosis of major depression and generalized anxiety, for which she currently takes bupropion. She exhibits hesitancy about changing this medication due to concerns over side effects impacting her quality of life, specifically libido and weight management. The patient has expressed a history of weight management challenges, exacerbated by complications following gallbladder removal, and reports an inability to lose weight despite previous success with intermittent fasting. Additionally, she discussed issues with self-administered semaglutide injections and the cost implications of weight management medications not covered by insurance. Social History - Employed in mental health care, managing a clinic. - with one child, a muc-emf-d-kqly-eaej-iks son. - Reports significant family stress and dynamic; is also anxious. - Previously engaged in weekly therapy for seven years until 2020. - Describes challenges with nutrition; allergic to multiple foods. - Tried various weight loss methods including intermittent fasting and past use of phentermine. exam awake alert NAD RRR LS CTAB Mood and affect appropriate Discussion Notes During this visit, we discussed the continuation of montelukast for asthma and allergy management, supplemented by an as-needed albuterol inhaler. I explained the benefits and potential side effects of initiating metformin for weight management, emphasizing correct administration to minimize gastrointestinal distress. We discussed starting paroxetine alongside bupropion to address generalized anxiety, with a focus on monitoring for side effects such as mild headaches or mental clarity issues. Additionally, I encouraged stopping semaglutide injections bought from unverified sources due to safety concerns. Recommendations for follow-up in six weeks were made to assess the efficacy and tolerability of paroxetine and metformin. I advised signing up for the patient portal for efficient management and communication regarding future health updates. 15 minutes spent Discussing different forms of medications to help with weight loss. Discouraged the use of GLP-1s due to the need to use lifelong, weight gain after discontinuation, cost and cancer risk. Educated about the use of Wellbutrin which can be used in patients without a seizure history. This medication works by blocking out the reward center related to mindless eating. It also has a mild stimulating effect. The side effect profile includes mild anxiety as well as a slight dizzy sensation. Another medication used is metformin, this is a diabetic medication. This medication has GI side effects. But can be very beneficial in aiding with weight loss in patients without diabetes. Topiramate was also discussed. This is a seizure medication with side effect profile that includes need to monitor LFTs as well as blood counts. One of the side effects is weight loss. Another medication, Phentermine is a stimulant/controlled substance. This is an anorexient that is used short-term medication used. =. Finally the use of a medication called Contrave, which is Wellbutrin + naltrexone can be used. The brand name is usually not cover therefore would have to prescribe the 2 medications individually. This medication works just as the Wellbutrin; naltrexone aides in further blocking of the reward center to aide in wt loss. After discussion of the above, the patient wishes to proceed with Metformin, DC GLP1, cont wellbutrin. Plan - Continue montelukast for asthma control and manage allergies with consistent allergen avoidance. - Refill albuterol inhaler for acute asthma symptoms. - Initiate metformin as a potential adjunctive treatment for weight management, advising against use with current semaglutide injections to avoid gastrointestinal side effects. - Prescribe paroxetine to address generalized anxiety, complementing current bupropion therapy. - Conduct routine non-fasting laboratory tests to establish baseline health metrics including complete blood count, metabolic panel, and thyroid function. - Reevaluate the efficacy of Paxil and metformin in six weeks. - Adjust future psychiatric medication regimens as needed while monitoring for side effects. - Maintain regular monitoring of post-discectomy symptoms and continue with current conservative management. Patient was informed and verbally consented to the use of an ambient scribe for clinic note documentation during this visit. Patient Instructions - Continue montelukast and use albuterol as needed for asthma management. - Start taking metformin with food in the evening meal, discontinue semaglutide injections. - Begin paroxetine daily, choosing morning or evening dosage depending on side effects experienced. - Schedule follow-up appointment in six weeks to evaluate the new medication regimen. - Sign up for the patient portal for follow-up communications and results. - Complete laboratory tests as soon as possible for baseline measurements. Total time spent caring for the patient today was 50 minutes. This includes time spent before the visit reviewing the chart, time spent during the visit, and time spent after the visit on documentation This note is constructed using voice recognition software. While every effort has been made to ensure accuracy in joint finisher, still errors may have been included Sometimes, these errors may affect the content or meaning of the given sentence . PFSH Medical History (Updated 08/02/24 @ 16:23 by Susan Patel [facility]) Anxiety Degenerative arthritis Back pain Depression Asthma Surgical History (Updated 08/02/24 @ 11:18 by Trenton Velazquez MA) Previous back surgery Hx of wisdom tooth extraction Hx of eye surgery Hx of section Hx of cholecystectomy Family History (Updated 08/02/24 @ 11:17 by Trenton Velazquez MA) Mother Mental health disorder Asthma Stroke Father Mental health disorder Substance abuse High cholesterol Asthma Maternal Grandmother Cancer Paternal Grandmother Cancer Thyroid disorder Maternal Uncle Cancer Social History (Updated 08/02/24 @ 11:14 by Trenton Velazquez MA) Household Members: Spouse and Children Both parents involved: No Caregiver staying overnight: No Housing: House Are you a primary career development specialist to a significant other at home: Yes Do you presently have visiting nurse or other home services: No 75 years or older and lives alone: No Alcohol intake: current Alcohol intake frequency: a few times a month Patient Tobacco Use Status: Never used Tobacco e-Cigarette/Vaping Use: Never Used Second Hand Smoke Exposure: No Current occupational status: employed Current occupation: [employer] Cognitive needs: No Hearing needs: No Vision needs: Yes (wear glasses) Questionnaire PHQ-9 Over the last 2 weeks, how often have you been bothered by any of the following problems? 1. Little interest or pleasure in doing things: not at all 2. Feeling down, depressed, or hopeless: not at all 3. Trouble falling or staying asleep, or sleeping too much: not at all 4. Feeling tired or having little energy: more than half the days 5. Poor appetite or overeating: several days 6. Feeling bad about yourself - or that you are a failure or have let yourself or your family down: several days 7. Trouble concentrating on things, such as reading the newspaper or watching television: not at all 8. Moving or speaking so slowly that other people could have noticed. Or the opposite - being so fidgety or restless that you have been moving around a lot more than usual: not at all 9. Thoughts that you would be better off or of hurting yourself in some way: not at all Total score: 4 Depression Screening Interpretation: Negative Depression Screening Done: Yes 44320 - PHQ-9 Billing: Yes Source: Developed by Drs. Khurram Garcia, Yecenia Singer, Govind Gandhi and colleagues, with an educational daylin from [employer]. Thrive Questionnaire Date Thrive assessed: 07/26/24 I am a: Patient What is your living situation today?: I have a steady place to live Within the past 12 months, did the food you bought not last and you didn't have the money to get more?: Never true Within the past 12 months, did you worry whether your food would run out before you got money to buy more?: Never true Do you have trouble paying for medicines?: No Do you have trouble getting transportation to medical appointments?: No Do you have trouble paying your heating and electricity bill?: No Do you have trouble taking care of your child, family member or friend?: No Do you have trouble with day-to-day activities such as bathing, preparing meals, shopping, managing finances, etc.?: No Are you currently unemployed and looking for a job?: No Are you interested in more education?: No Please select the resources that you would like help with: None Currently or been in a relationship where the following occur: No concerns reported THRIVE Score: 0 AUDIT C Alcohol Use Questionnaire (AUDIT-C) 1. How often do you have a drink containing alcohol?: Monthly or less 2. How many drinks containing alcohol do you have on a typical day when you are drinking?: 1 or 2 3. How often do you have six or more drinks on one occasion?: Less than monthly Total Score: 2 Score Reviewed/Action Taken: Yes BING-7 AMB Questionnaire BING-7 Date BING - 7 assessed: 01/14/25 Feeling nervous, anxious, or on edge: 1 = Several days Not being able to stop or control worryin = Several days Worrying too much about different things: 1 = Several days Trouble relaxin = More than half the days Being so restless that it is hard to sit still: 0 = Not at all Becoming easily annoyed or irritable: 0 = Not at all Feeling afraid as if something awful might happen: 0 = Not at all Total BING-7 score (0-4 normal; 5-9 mild; 10-14 moderate; 15-21 severe): 5 Source: Developed by Drs. Khurram Garcia, Yecenia Singer, Govind Gandhi and colleagues, with an educational daylin from [employer]. BING-7 Assessment Billing BING-7 Assessment Tool: BING-7 Assessment 28790 ACT Questionnaire In the past 4 weeks, how much of the time did your asthma keep you from getting as much done at work, school or at home?: None of the time During the past 4 weeks, how often have you had shortness of breath?: Not at all During the past 4 weeks, how often did your asthma symptoms wake you up at night or earlier than usual in the morning?: Not at all During the past 4 weeks, how often have you had to use your rescue inhaler or nebulizer medication?: Not at all How would you rate your asthma control during the past 4 weeks?: Completely controlled ACT Interpretation: Negative Score: 25 Physical exam (Primary Care) Vital Signs: Last Vital Signs Pulse 68 08/02/24 11:18 Resp 12 08/02/24 11:18 BP 102/66 08/02/24 11:18 Pulse Ox 98 08/02/24 11:18 Oxygen Delivery Method Room Air 08/02/24 11:18 BMI result Body Mass Index 28.7 Tobacco/Smoking Status: Tobacco use Status Tobacco use date assessed 08/02/24 08/02/24 11:00 Patient Tobacco Use Status Never used Tobacco 08/02/24 11:14 e-Cigarette/Vaping Use Never Used 08/02/24 11:14 PHQ-9: PHQ-9 Score PHQ-9: Total score 4 08/02/24 16:03 Depression Screening Interpretation: Negative Thrive Assessment: Date of Thrive Assessment Date Thrive assessed 01/07/25 01/14/25 10:57 Currently or been in a relationship where the following occur: No concerns reported Office Procedures Office Procedure Misc Details: G0449 15 MINUTE OBESITY EDUCATION Office Procedure Billing Code: AMB Procedure Billing Code (G0449 15 MINUTE OBESITY EDUCATION) Coding Level of Care Code New Pt Level 4 (55346) Complex EM visit Add On G2211 Diagnoses Encounter to establish care Z76.89 BING (generalized anxiety disorder) F41.1 Mild episode of recurrent major depressive disorder F33.0 Major depression episode severity: mild Mild intermittent asthma in adult without complication J45.20 BMI 28.0-28.9,adult Z68.28 Overweight with body mass index (BMI) of 28 to 28.9 in adult E66.3; Z68.28 CPT Codes Office Procedure - Office Procedure Billing Code: AMB Procedure Billing Code ([id number]) Additional Codes Asthma Control Questionnaire - ACT Interpretation: Negative ([id number]) BING-7 Assessment Billing - BING-7 Assessment Tool: BING-7 Assessment 81955 ([id number]) PHQ-9 - 96256 - PHQ-9 Billing: Yes ([id number]) Assessment & Plan Assessment & Plan (1) Encounter to establish care: Code(s): Z76.89 - Persons encountering health services in other specified circumstances Category: Medical (2) BING (generalized anxiety disorder): Code(s): F41.1 - Generalized anxiety disorder Category: Medical (3) MDD (major depressive disorder), recurrent episode: Code(s): F33.9 - Major depressive disorder, recurrent, unspecified Category: Medical Qualifiers: Major depression episode severity: mild Qualified Code(s): F33.0 - Major depressive disorder, recurrent, mild (4) Mild intermittent asthma in adult without complication: Code(s): J45.20 - Mild intermittent asthma, uncomplicated Category: Medical (5) BMI 28.0-28.9,adult: Code(s): Z68.28 - Body mass index [BMI] 28.0-28.9, adult Category: Medical (6) Overweight with body mass index (BMI) of 28 to 28.9 in adult: Code(s): E66.3 - Overweight; Z68.28 - Body mass index [BMI] 28.0-28.9, adult Category: Medical Plan . Orders: Orders Hemoglobin A1c Today Z00.00 - Encounter for general adult medical examination without abnormal findings TSH reflex Free T4 Today Z00.00 - Encounter for general adult medical examination without abnormal findings Complete Blood Count no Diff Today Z00.00 - Encounter for general adult medical examination without abnormal findings Comprehensive Met. Panel Today Z00.00 - Encounter for general adult medical examination without abnormal findings Lipid Panel Today Z00.00 - Encounter for general adult medical examination without abnormal findings Vitamin B12 and Folate Today Z00.00 - Encounter for general adult medical examination without abnormal findings Medications: New paroxetine HCl (Paxil) 10 mg PO DAILY 30 tabs 1RF bupropion HCl XL 300 mg PO DAILY 90 tabs 0RF montelukast 10 mg PO BEDTIME 90 tabs 2RF albuterol sulfate 90 mcg/actuation 2 puffs inhalation Q4H PRN 6.7 grams 2RF Shortness Of Breath Or Wheezing metformin ER 500 mg PO QPM 30 tabs 1RF Patient Instructions: Walk-In Care (Urgent Care): We Make it Easy Walk-in for urgent medical issues such as: ? Seasonal Allergies ? Insect Bites ? Cough ? Diarrhea ? Acute Asthma Attacks ? Back, Knee or Joint Pain ? Ear Infection ? Fever without a Rash ? Headaches ? Nausea ? [place] [facility], Rash or Skin Irritation ? Sore Throat ? Sports Physicals ? Vomiting Most insurances are accepted. Patients do not need to be part of the [facility] to seek care at the walk-in clinic. Locations [facility] , [place] [address] ? [phone] [facility] Walk-In Care in [place] provides services to ages 18 and over. Open Thursday-Thursday: 8 a.m. to 5 p.m. and Thursday: 9 a.m. to 3 p.m.* *Hours may vary due to staffing availability. To confirm Walk-In Care hours in [place], please call [phone]. [address] [place] [address] ? [phone] [facility] Walk-In Care in [place] provides services to ages 12 and over. Open Thursday-Thursday: 8 a.m. to 5 p.m. Hours may vary due to staffing availability. To confirm Walk-In Care hours in [place], please call [phone]. LABORATORY SERVICES: [facility] ? Primary Location [address] [place], [place] [address]day through Thursday 6:00 AM ? 5:00 PM Thursday 7:00 AM ? 11:00 AM* [phone] The [facility] is centrally located near the front entrance of the [facility] for easy outpatient access. Convenient parking is provided for outpatients. *Hours may vary due to staffing availability. To confirm Laboratory hours for any location, please call [phone]. Offsite Location For your convenience, we offer offsite laboratory draw stations at the following locations: [address] [place] [address] ? [facility] [address], [address] Thursday through Thursday 7:30 AM ? 1:00 PM* [phone] *Hours may vary due to staffing availability. To confirm Laboratory hours for any location, please call [phone]. [place] ? [address] Thursday through Thursday 6:00 AM ? 3:30 PM* Thursday 6:30 AM ? 3 PM* [phone] *Hours may vary due to staffing availability. To confirm Laboratory hours for any location, please call [phone]. [address] [facility] Thursday through Thursday 7:30 AM ? 4:00 PM* [phone] *Hours may vary due to staffing availability. To confirm Laboratory hours for any location, please call [phone] [place] [address] Thursday through 9:00 AM ? 4:00 PM* *Hours may vary due to staffing availability. To confirm Laboratory hours for any location, please call [phone]. Appointments are not necessary. Walk-ins are welcome. Like all the departments throughout the [facility], our Lab undergoes frequent reviews to ensure the quality and accuracy of test results, and our staff takes special pride in its status as a nationally accredited facility. Patient Portal: ONE PATIENT. ONE RECORD. BETTER CARE. [facility] has a fully integrated, cutting-edge mobile electronic health information system that has revolutionized the way we care for our patients and manage our organization. This system improves communication and coordination enabling us to provide safe, higher-quality care, and an overall positive experience for staff and patients. Our first priority, as always, is to deliver the highest quality care possible. The system is running in the background supporting that priority. This portal is for all [facility] services and practices. If you are experiencing any technical difficulties with enrolling or logging into the Patient Portal please complete the [facility] Patient Portal Technical Support Form. [facility] now offers a new secure on-line interactive tool for patients to review their health information ? ?Patient Portal. This interactive web portal will enable patients and their families to take an active role in their care by providing easy, secure access to their health information via the internet. The Patient Portal provides patients with instant access to their health information, including laboratory results, medications, allergies, demographic information, visit history, and more. In addition to managing their own care, parents and health care proxies with authorized consent will appreciate the ability to access the records of those individuals for whom they provide care. Please note: if you wish to gain access (Proxy) to another patient?s portal, you will be required to come to the Medical Records Department in person at [facility]. Both the patient giving proxy access and the proxy will need to provide photo identification and complete the appropriate authorization. The Patient Portal also allows track their appointments online. The [facility] Patient Portal also saves patients time by allowing them to submit updates to their demographic and contact information prior to their visits. Portal email notifications will also alert patients to any new activity on their portal, such as test results and new appointments. In order to initially enroll in the [facility] Patient Portal, you will need to enter some required information including the following: your [facility] Medical Record number your personal home email address name date of Please note: In order to enroll in the [facility] Patient Portal, we need to have your email address on file in your electronic medical record. ?The email address needs to be specific for one person (yourself) in order for your Portal enrollment to be successful. ?You can update your email address in person with our Registration staff when you are registering for a hospital visit. ?Otherwise, you will need to come to the Health Information Management (Medical Records) Department at [facility]. ?We are open from Thursday ? Thursday from 7:30 a.m. ? 4:30 p.m. ?You will be required to present a photo id. Once you have successfully enrolled in the Patient Portal, you will receive a one-time user id and password for the Portal, sent to your email address. ?This will allow you to log into the Patient Portal within 99 hrs and reset your own logon id and password, and define personal security questions. ?Once your permanent login and password have been set, you can log into the [facility] Patient Portal at any time via the blue button above or from the Portal Logon button on any page of the [facility] website. [facility] and [facility] encourage all of our patients to enroll in Patient Portal as it presents a valuable opportunity for patients and their families to actively participate in their care and stay healthy Welcome to [facility] [facility] ?We look forward to working with you.
[2024-08-02 11:18] VITALS: BP 102/66; PULSE 68; RESP 12; O2SAT 98; BMI 28.7
== END 2024-08-02 12:03 | disposition home or self-care (01) ==
PROVIDERS: PCP Physician Assistant; Visit Provider Nurse Practitioner Family
DX: Z76.89 Persons encountering health services in other specified circumstances (principal); F41.1 Generalized anxiety disorder; F33.0 Major depressive disorder, recurrent, mild; J45.20 Mild intermittent asthma, uncomplicated; Z68.28 Body mass index [BMI] 28.0-28.9, adult; E66.3 Overweight

== ENCOUNTER → 2024-08-02 10:50 | Outpatient (BNVA) | payer OTHER, SELFPAY | PROVIDERS: PCP Physician Assistant; Visit Provider Nurse Practitioner Family | DX: Z76.89 Persons encountering health services in other specified circumstances (principal); F41.1 Generalized anxiety disorder; F33.0 Major depressive disorder, recurrent, mild; J45.20 Mild intermittent asthma, uncomplicated; E66.3 Overweight; Z68.28 Body mass index [BMI] 28.0-28.9, adult | CPT/HCPCS: 96127; 96160 ==

== ENCOUNTER 2024-08-05 14:53 | Outpatient (REF) | payer OTHER, SELFPAY ==
[2024-08-05 16:09] LABS: Hematocrit 40.3 % (37.0-47.0); Hemoglobin 13.7 g/dl (12.0-16.0); Mean Corpuscular Hemoglobin 31.4 pg (27.0-33.0); Mean Corpuscular Volume 92.4 fL (80.0-98.0); Mean Platelet Volume 11.4 fL (9.4-12.3); Platelet Count 225 X10*3/uL (160-400); Red Blood Count 4.36 X10*6/uL (4.20-5.50); Red Cell Distribution Width 12.1 % (11.0-16.0); White Blood Count 7.2 X10*3/uL (4.8-10.8)
[2024-08-05 16:40] LABS: Estimated Average Glucose 103 mg/dL; Hemoglobin A1c % 5.2 % (<6.0); Total Hemoglobin (HGBA1C) 3592.2073 umol/L
[2024-08-05 17:01] LABS: Alanine Aminotransferase 18 U/L (0-31); Albumin Level 4.1 g/dL (3.5-5.0); Alkaline Phosphatase 66 U/L (39-117); Anion Gap 7 (12-20); Aspartate Amino Transferase 19 U/L (5-31); Bilirubin Total 0.2 mg/dL (0.0-1.0); Blood Urea Nitrogen 13 mg/dL (9-16); Calcium 9.1 mg/dL (8.4-10.2); Carbon Dioxide 27 mmol/L (22-29); Chloride 109 mmol/L (96-108); Cholesterol 212 mg/dL (<200); Estimated Glomerular Filt Rate > 60; Glucose Random 84 mg/dL (60-115); HDL Cholesterol 57 mg/dL (>40); LDL Cholesterol Calculated 132 mg/dL (<100); Potassium 3.9 mmol/L (3.3-5.1); Sodium 139 mmol/L (135-145); Total Protein 7.7 g/dL (6.5-8.0); Triglycerides 119 mg/dL (<150)
[2024-08-05 17:18] LABS: TSH reflex Free T4 1.13 uIU/mL (0.32-4.0)
[2024-08-05 17:22] LABS: Folate 16.5 ng/mL (> or = 4.0); Vitamin B12 452 pg/mL (200-900)
== END 2024-08-05 14:54 | disposition home or self-care (01) ==
LOC: HO.HMGCLDS 14:53
PROVIDERS: PCP Nurse Practitioner Family; Visit Provider Nurse Practitioner Family
DX: Z00.00 Encounter for general adult medical examination without abnormal findings (principal); Z13.1 Encounter for screening for diabetes mellitus
CPT/HCPCS: 36415; 80053; 80061; 82607; 82746; 83036; 84443; 85027

== ENCOUNTER 2024-09-18 02:16 | Emergency (ER) | payer OTHER, SELFPAY ==
[2024-09-18 02:21] VITALS: BP 128/78; PULSE 88; RESP 16; TEMP 36.6; O2SAT 98; BMI 23.1
[2024-09-18 02:39] LABS: MANUAL DIFF FLAG NO
[2024-09-18 02:44] LABS: Basophils Absolute Auto 0.1 X10*3/uL (0.0-0.2); Basophils Percent Auto 0.5 % (0-2); Eosinophils Absolute Auto 0.1 X10*3/uL (0.0-0.4); Eosinophils Percent Auto 0.8 % (0-4); Hematocrit 38.3 % (37.0-47.0); Hemoglobin 13.5 g/dl (12.0-16.0); Imm Gran Abs Auto 0.02 X10*3/uL (0.00-0.03); Imm Gran Pct Auto 0.2 % (0.0-0.4); Lymphocytes Absolute Auto 1.1 X10*3/uL (1.2-4.9); Mean Corpuscular HGB Conc 35.2 g/dl (31.0-35.0); Mean Corpuscular Hemoglobin 31.3 pg (27.0-33.0); Mean Corpuscular Volume 88.9 fL (80.0-98.0); Mean Platelet Volume 10.6 fL (9.4-12.3); Monocytes Absolute Auto 0.8 X10*3/uL (0.1-1.2); Monocytes Percent Auto 8.2 % (2-11); Neutrophils Percent Auto 79.3 % (45-73); Platelet Count 195 X10*3/uL (160-400); Red Blood Count 4.31 X10*6/uL (4.20-5.50); Red Cell Distribution Width 11.9 % (11.0-16.0); White Blood Count 10.1 X10*3/uL (4.8-10.8)
[2024-09-18 02:52] LABS: UPreg QC Valid YES; Urine Pregnancy NEGATIVE (NEGATIVE)
[2024-09-18 02:54] LABS: Appearance Urine Clear; Color Urine Dark Yellow; Glucose Urine UA Negative (Negative); Leukocyte Esterase Urine Trace (Negative); Nitrite Urine Negative (Negative); PH 5.5 (5.0-9.0); Specific Gravity - Urine >= 1.030 (1.005-1.025); UMIC TRIGGER UACC YES; Urine Blood Negative (Negative); Urine Ketones 15 mg/dL (Negative); Urine Protein Trace mg/dL (Neg-Trace)
[2024-09-18 02:56] LABS: Bacteria Urine None Seen (None Seen); Hyaline Casts Urine 0-2 /LPF (0-2); RBC Urine 0-2 /HPF (0-2); UACC Culture Trigger YES
[2024-09-18 03:09] LABS: Alanine Aminotransferase 21 U/L (0-31); Albumin Level 3.9 g/dL (3.5-5.0); Alkaline Phosphatase 72 U/L (39-117); Anion Gap 17 (12-20); Aspartate Amino Transferase 28 U/L (5-31); Bilirubin Total 0.3 mg/dL (0.0-1.0); Blood Urea Nitrogen 14 mg/dL (9-16); Carbon Dioxide 19 mmol/L (22-29); Chloride 108 mmol/L (96-108); Creatinine Clr Calc Pharmacy 77.9; Estimated Glomerular Filt Rate > 60; Glucose Random 138 mg/dL (60-115); Lipase 15 U/L (8-78); Potassium 3.9 mmol/L (3.3-5.1); Sodium 140 mmol/L (135-145); Total Protein 7.7 g/dL (6.5-8.0)
--- NOTE | 2024-09-18 03:15 | ED.ABDPAIN ---
HPI - Abdominal Pain General Chief Complaint: Abdominal Pain Stated Complaint: nausea, abd pain Time Seen by Provider: 09/18/24 03:14 Source: patient Mode of arrival: ambulatory Limitations: no limitations History of Present Illness ED Provider: HPI narrative: Patient is status post cholecystectomy in 2019 comes here for acute onset of upper abdominal pain with nausea vomiting started at 23:30 vomited about 10 times no diarrhea no fever no chills no upper respiratory symptoms no other family member sick denies any bad food intake Related Data Home Medications ?Medication ?Instructions ?Recorded ?Confirmed cetirizine 10 mg tablet (Zyrtec) 10 mg PO DAILY 10/29/23 08/02/24 docusate sodium 100 mg capsule 100 mg PO BEDTIME 10/29/23 08/02/24 (Colace) multivitamin 1 tab PO DAILY 10/29/23 08/02/24 norethindrone 1 mg-ethinyl 1 tab PO DAILY 10/29/23 08/02/24 estradiol 20 mcg (21)-iron 75 mg (7) tablet (June FE 08/08 (28)) Previous Rx's ?Medication ?Instructions ?Recorded albuterol sulfate 90 mcg/actuation 2 puff inhalation Q4H PRN 08/02/24 aerosol inhaler Shortness Of Breath Or Wheezing #6.7 grams bupropion HCl 300 mg 24 hr tablet, 300 mg PO DAILY #90 tabs 08/02/24 extended release metformin 500 mg tablet,extended 500 mg PO QPM #30 tabs 08/02/24 release 24 hr montelukast 10 mg tablet 10 mg PO BEDTIME #90 tabs 08/02/24 paroxetine HCl 10 mg tablet (Paxil) 10 mg PO DAILY #30 tabs 08/02/24 ondansetron 4 mg disintegrating 4 mg PO Q6-8H PRN nausea and 09/18/24 tablet vomiting #7 tabs Allergies Allergy/AdvReac Type Severity Reaction Status Date / Time doxycycline [DOXYCYCLINE] Allergy Unknown STOMACH Verified 09/18/24 02:27 PAINS hydrocodone [From VICODIN] Allergy Unknown NAUSEA & Verified 09/18/24 02:27 VOMITING ibuprofen [IBUPROFEN] Allergy Unknown HIVES, Verified 09/18/24 02:27 SWELLING, hives nickel [NICKEL] Allergy Unknown RASH Verified 09/18/24 02:27 Doxycycline Hyclate Allergy Unknown stomach Uncoded 09/18/24 02:27 upset Review of Systems Review of Systems Yes all other systems are reviewed and are negative [facility] Past Medical History Medical History Anxiety Degenerative arthritis Back pain Depression Asthma Surgical History Previous back surgery Hx of wisdom tooth extraction Hx of eye surgery Hx of section Hx of cholecystectomy Family History Family History Mother Mental health disorder Asthma Stroke Father Mental health disorder Substance abuse High cholesterol Asthma Maternal Grandmother Cancer Paternal Grandmother Cancer Thyroid disorder Maternal Uncle Cancer Social History Social History Household Members: Spouse and Children Housing: House Are you a primary physician primary care sports medicine to a significant other at home: Yes Do you presently have visiting nurse or other home services: No Alcohol intake: current Alcohol intake frequency: holidays/special occasions only Patient Tobacco Use Status: Never used Tobacco Smoked in Last 30 Days: No e-Cigarette/Vaping Use: Never Used Second Hand Smoke Exposure: No Use of substances other than those prescribed or required for medical reasons: No Advance Directives: No Do you have a plan to hurt others: No Plan Current occupational status: employed Current occupation: [employer] Cognitive needs: No Hearing needs: No Vision needs: Yes (wear glasses) Physical Exam ED Vital Signs: Vital Signs - 24 hr 09/18/24 02:21 Temperature 97.8 F Pulse Rate 88 Respiratory Rate 16 Blood Pressure 128/78 Pulse Oximetry 98 Oxygen Delivery Method Room Air BMI result Body Mass Index 23.1 Appearance: Alert. Oriented X3. No acute distress. Eyes: No pallor or icterus ENT: Pharynx normal. Oral Mucosa moist Neck: Normal inspection. Neck supple. CVS: Normal heart rate and rhythm. Pulses normal. Respiratory: No respiratory distress. Equal air entry bilateral, no wheezing/rales/rhonchi Abdomen: Soft and tenderness in epigastric area, Bowel sounds are present, no mass palpable, no CVA tenderness Skin: Skin warm and dry. Normal skin color. Normal skin turgor. Extremities: No lower extremity edema. No calf tenderness Neuro: Oriented X 3. No motor deficit. No sensory deficit.No cerebellar signs , cranial nerves II-XII intact Medical Decision Making Medical Decision Making [facility] Narrative: Patient with abdominal pain with nausea vomiting likely viral labs are stable patient is feeling much better after IV fluids and Zofran discharge patient home Differential Diagnosis Differential Diagnoses: The differential diagnosis associated with the presentation includes UTI/pancreatitis/gastroenteritis Lab Data [facility] Lab Attestation statement: I reviewed the patient's lab results. 09/18/24 02:35 09/18/24 02:35 Labs: Lab Results 09/18/24 09/18/24 Range/Units 02:35 02:42 WBC 10.1 (4.8-10.8) X10*3/uL RBC 4.31 (4.20-5.50) X10*6/uL Hgb 13.5 (12.0-16.0) g/dl Hct 38.3 (37.0-47.0) % MCV 88.9 (80.0-98.0) fL MCH 31.3 (27.0-33.0) pg MCHC 35.2 H (31.0-35.0) g/dl RDW 11.9 (11.0-16.0) % Plt Count 195 (160-400) X10*3/uL MPV 10.6 (9.4-12.3) fL Immature Gran % (Auto) 0.2 (0.0-0.4) % Neut % (Auto) 79.3 H (45-73) % Lymph % (Auto) 11.0 L (20-40) % [place] % (Auto) 8.2 (2-11) % Eos % (Auto) 0.8 (0-4) % Baso % (Auto) 0.5 (0-2) % Lymph # (Auto) 1.1 L (1.2-4.9) X10*3/uL [place] # (Auto) 0.8 (0.1-1.2) X10*3/uL Eos # (Auto) 0.1 (0.0-0.4) X10*3/uL Baso # (Auto) 0.1 (0.0-0.2) X10*3/uL Abs Immat Gran (auto) 0.02 (0.00-0.03) X10*3/uL Absolute Neuts (auto) 8.0 (2.0-8.3) x10*3/uL Absolute Nucleated RBC 0.000 (0.0-0.012) X10*3/uL Nucleated RBC % (auto) 0.0 (0.0-0.2) /100WBC Sodium 140 (135-145) mmol/L Potassium 3.9 (3.3-5.1) mmol/L Chloride 108 (96-108) mmol/L Carbon Dioxide 19 L (22-29) mmol/L Anion Gap 17 (12-20) BUN 14 (9-16) mg/dL Creatinine 0.76 (0.5-1.4) mg/dL Estim Creat Clear Calc 77.9 Estimated GFR > 60 Random Glucose 138 H (60-115) mg/dL Calcium 9.0 (8.4-10.2) mg/dL Total Bilirubin 0.3 (0.0-1.0) mg/dL AST 28 (5-31) U/L ALT 21 (0-31) U/L Alkaline Phosphatase 72 (39-117) U/L Total Protein 7.7 (6.5-8.0) g/dL Albumin 3.9 (3.5-5.0) g/dL Lipase 15 (8-78) U/L Urine Color Dark Yellow Urine Appearance Clear Urine pH 5.5 (5.0-9.0) Ur Specific [place] >= 1.030 H (1.005-1.025) Urine Protein Trace (Neg-Trace) mg/dL Urine Glucose (UA) Negative (Negative) mg/dL Urine Ketones 15 (Negative) mg/dL Urine Blood Negative (Negative) Urine Nitrite Negative (Negative) Ur Leukocyte Esterase Trace H (Negative) Urine RBC 0-2 (0-2) /HPF Urine WBC 6-10 H (0-5) /HPF Ur Squamous Epith Cells 6-10 (0-2) /HPF Urine Bacteria None Seen (None Seen) Hyaline Casts 0-2 (0-2) /LPF Urine Test NEGATIVE (NEGATIVE) Influenza Type A (PCR) NEGATIVE (Negative) Influenza Type B (PCR) NEGATIVE (Negative) RSV RNA Qual (PCR) NEGATIVE (Negative) SARS-CoV-2 RNA (RT-PCR) NEGATIVE (Negative) Medications Administered Discontinued Medications Generic Name Dose Route Start Last Admin Trade Name Freq PRN Reason Stop Dose Admin Sodium Chloride 1,000 mls @ 999 mls/hr 09/18/24 02:44 09/18/24 03:31 Ns IV 09/18/24 03:44 999 mls/hr .Q1H1M ONE Administration Morphine Sulfate 4 mg 09/18/24 03:18 09/18/24 03:31 Morphine Sulfate 4 Mg/Ml Cartridge IVPUSH 09/18/24 03:19 4 mg ONCE ONE Administration Protocol Ondansetron HCl 4 mg 09/18/24 02:44 09/18/24 03:31 Ondansetron Hcl 4 Mg/2 Ml Vial IVPUSH 09/18/24 02:45 4 mg ONCE ONE Administration Discharge Plan Discharge Clinical Impression: Acute nausea with nonbilious vomiting Patient Disposition: Home, Self-Care Instructions: Acute Nausea and Vomiting (ED) Additional Instructions: Drink plenty of fluid Medicine for nausea as prescribed Likely have virus as the cause of nausea vomiting Prescriptions: New ondansetron 4 mg tablet,disintegrating 4 mg PO Q6-8H PRN (Reason: nausea and vomiting) Qty: 7 0RF No Action multivitamin Tablet 1 tab PO DAILY cetirizine [Zyrtec] 10 mg Tablet 10 mg PO DAILY norethindrone-e.estradiol-iron [Junel FE 08/08 ()] 1 mg-20 mcg (21)/75 mg (7) tablet 1 tab PO DAILY docusate sodium [Colace] 100 mg Capsule 100 mg PO BEDTIME paroxetine HCl [Paxil] 10 mg tablet 10 mg PO DAILY Qty: 30 1RF bupropion HCl 300 mg tablet extended release 24 hr 300 mg PO DAILY Qty: 90 0RF metformin 500 mg tablet extended release 24 hr 500 mg PO QPM Qty: 30 1RF montelukast 10 mg tablet 10 mg PO BEDTIME Qty: 90 2RF albuterol sulfate 90 mcg/actuation HFA aerosol inhaler 2 puff INHALATION Q4H PRN (Reason: Shortness Of Breath Or Wheezing) Qty: 6.7 2RF Print Language: Citizen Of [place]
[2024-09-18] MEDS: Morphine Sulfate 4 MG/ML CARTRIDGE IVPUSH (03:31)
[2024-09-18] MEDS: 0.9 % Sodium Chloride 1,000 ML 999 ML IV (03:31)
[2024-09-18] MEDS: ondansetron HCL 4 MG/2 ML VIAL IVPUSH (03:31)
[2024-09-18 03:37] LABS: Influenza A PCR NEGATIVE (Negative); Influenza B PCR NEGATIVE (Negative); Resp Syncy Virus RNA Qual PCR NEGATIVE (Negative); SARS COV2 PCR INHOUSE NEGATIVE (Negative)
[2024-09-18 04:57] VITALS: BP 100/64; PULSE 87; RESP 16; TEMP 36.6; O2SAT 97
== END 2024-09-18 04:59 | disposition home or self-care (01) ==
PROVIDERS: Emergency Provider Internal Medicine; PCP Nurse Practitioner Family
DX: R11.2 Nausea with vomiting, unspecified (principal); R11.14 Bilious vomiting; R10.10 Upper abdominal pain, unspecified; Z03.818 Encounter for observation for suspected exposure to other biological agents ruled out
CPT/HCPCS: 0241U; 36415; 80053; 81001; 81025; 83690; 85025; 87086; 96361; 96374; 96375; 99284; 99285; J2270; J2405

== ENCOUNTER 2024-10-03 15:50 | Outpatient (AMB) | payer OTHER, SELFPAY ==
--- NOTE | 2024-10-03 15:46 | MHC.PC.OV ---
Vital Signs 10/03/24 16:36 Height 5 ft 1 in Intake Visit Reasons: Review new meds Intake Note: telehealth for med review Contract Associate Manager Required: No Allergies doxycycline [DOXYCYCLINE] Allergy (Unknown, Verified 10/03/24 16:31) STOMACH PAINS hydrocodone [From VICODIN] Allergy (Unknown, Verified 10/03/24 16:31) NAUSEA & VOMITING ibuprofen [IBUPROFEN] Allergy (Unknown, Verified 10/03/24 16:31) HIVES, SWELLING, hives nickel [NICKEL] Allergy (Unknown, Verified 10/03/24 16:31) RASH Doxycycline Hyclate Allergy (Unknown, Uncoded 10/03/24 16:31) stomach upset Medication List - Last Reconciled 10/03/24 by Susan Patel, [facility] albuterol sulfate 90 mcg/actuation 2 puffs inhalation Q4H PRN bupropion HCl XL 300 mg PO DAILY cetirizine (Zyrtec) 10 mg PO DAILY docusate sodium (Colace) 100 mg PO BEDTIME metformin ER 500 mg PO QPM montelukast 10 mg PO BEDTIME multivitamin 1 tab PO DAILY norethindrone-e.estradiol-iron 1 mg-20 mcg (21)/75 mg (7) (08/08 (28)) 1 tab PO DAILY ondansetron 4 mg PO Q6-8H PRN paroxetine HCl (Paxil) 10 mg PO DAILY Tobacco use date assessed: 10/03/24 Dental Screening Dental Screen Date: 10/03/24 Did you have a dental visit in the last 12 months?: Yes Did you have a dental problem in the last 6 months where you did not have access to dental care?: No Was dental information given to patient?: Patient has dentist HPI HPI Comments History of Present Illness Details 34 y/o F with asthma, obesity, MDD, BING Status post lumbar diskectomy 11/06/2024, status post cholecystectomy, Social with 1 son, Paddy age 2,, works at [employer] in [place] Family history father with high cholesterol and anxiety, mother with stroke, depression and anxiety Health Maintenance Tdap 2021 Flu declined Echo 03/31/2013 Pap smear 09/25/2016 [facility] Telehealth fu today for MDD/BING and Wt mgmt BING/MDD: paxil good no big changes no side effects cont to take wellbutrin. would like to increase paxil Wt mgmt: tolerating metformin w/o GI side effects. did note some tremors of hands/fingers that started after starting metformin and paxil. denies hypoglycemia otherwise. has not been weighing self at home; reports clothes fit the same; cont to crave sweets. will weight self today at home and send weight via the portal. wonders about increase in this. [place]: [place] [facility] [place] Supportive care.Work up reviewed. Feels better. Reviewed w/ her Labs from 08/05/2024 show a normal CBC, normal electrolytes, normal renal function, hemoglobin A1c of 5.2%, normal LFTs, mild elevation in total cholesterol 212, LDL 132, HDL 57, triglycerides 119, normal B12 folate and TSH Plan Increase paxil from 10mg to 20 mg QD Increase metformin from 500mg to 750mg QD monitor for tremors/shakes/signs of hypoglycemia. alert me right away if this occurs Send me weight via portal RTO 8 weeks to fu on the above, sooner PRN Total time spent caring for the patient today was 30 minutes. This includes time spent before the visit reviewing the chart, time spent during the visit, and time spent after the visit on documentation PFSH Medical History Anxiety Degenerative arthritis Back pain Depression Asthma Surgical History Previous back surgery Hx of wisdom tooth extraction Hx of eye surgery Hx of section Hx of cholecystectomy Family History Mother Mental health disorder Asthma Stroke Father Mental health disorder Substance abuse High cholesterol Asthma Maternal Grandmother Cancer Paternal Grandmother Cancer Thyroid disorder Maternal Uncle Cancer Social History Household Members: Spouse and Children Both parents involved: No Caregiver staying overnight: No Housing: House Are you a primary care center manager to a significant other at home: Yes Do you presently have visiting nurse or other home services: No 75 years or older and lives alone: No Alcohol intake: current Alcohol intake frequency: holidays/special occasions only Patient Tobacco Use Status: Never used Tobacco e-Cigarette/Vaping Use: Never Used Second Hand Smoke Exposure: No Current occupational status: employed Current occupation: [employer] Cognitive needs: No Hearing needs: No Vision needs: Yes (wear glasses) Questionnaire PHQ-9 Over the last 2 weeks, how often have you been bothered by any of the following problems? 1. Little interest or pleasure in doing things: not at all 2. Feeling down, depressed, or hopeless: several days 3. Trouble falling or staying asleep, or sleeping too much: not at all 4. Feeling tired or having little energy: more than half the days 5. Poor appetite or overeating: not at all 6. Feeling bad about yourself - or that you are a failure or have let yourself or your family down: several days 7. Trouble concentrating on things, such as reading the newspaper or watching television: not at all 8. Moving or speaking so slowly that other people could have noticed. Or the opposite - being so fidgety or restless that you have been moving around a lot more than usual: not at all 9. Thoughts that you would be better off or of hurting yourself in some way: not at all Total score: 4 Depression Screening Interpretation: Positive Depression Screening Follow-up: Existing condition and In treatment Depression Screening Done: Yes 17033 - PHQ-9 Billing: Yes Source: Developed by Drs. Khurram Garcia, Yecenia Singer, Govind Gandhi and colleagues, with an educational daylin from [employer]. Thrive Questionnaire Date Thrive assessed: 07/26/24 AUDIT C Alcohol Use Questionnaire (AUDIT-C) 3. How often do you have six or more drinks on one occasion?: Never Total Score: 0 Score Reviewed/Action Taken: Yes BING-7 AMB Questionnaire BING-7 Date BING - 7 assessed: 08/02/24 Feeling nervous, anxious, or on edge: 2 = More than half the days Not being able to stop or control worryin = Not at all Worrying too much about different things: 0 = Not at all Trouble relaxin = More than half the days Being so restless that it is hard to sit still: 0 = Not at all Becoming easily annoyed or irritable: 1 = Several days Feeling afraid as if something awful might happen: 0 = Not at all Total BING-7 score (0-4 normal; 5-9 mild; 10-14 moderate; 15-21 severe): 5 Source: Developed by Drs. Khurram Garcia, Yecenia Singer, Govind Gandhi and colleagues, with an educational daylin from [employer]. BING-7 Assessment Billing BING-7 Assessment Tool: BING-7 Assessment 79632 Physical exam (Primary Care) Tobacco/Smoking Status: Tobacco use Status Tobacco use date assessed 10/03/24 10/03/24 15:48 Patient Tobacco Use Status Never used Tobacco 10/03/24 15:48 e-Cigarette/Vaping Use Never Used 10/03/24 15:48 Depression Screening Interpretation: Positive Depression Screening Follow-up: Existing condition and In treatment Thrive Assessment: Date of Thrive Assessment Date Thrive assessed 07/26/24 10/03/24 15:48 Telehealth Telehealth Telehealth Platform: [facility] Location of provider rendering services: practice address Location of patient: address on file Patient Identification confirmed using: Name, : Yes Telehealth method: video Patient verbally consented to treatment: Yes Patient verbally consented to billing insurance company: Yes Patient informed of any privacy concerns related to visit: Yes Minutes spent on Phone/Video with Pt.: 20 Coding Level of Care Code Tele Est Pt Level 3 (26526) Complex EM visit Add On G2211 Diagnoses BING (generalized anxiety disorder) F41.1 Mild episode of recurrent major depressive disorder F33.0 Major depression episode severity: mild Overweight with body mass index (BMI) of 28 to 28.9 in adult E66.3; Z68.28 BMI 28.0-28.9,adult Z68.28 Hospital discharge follow-up Z09 Additional Codes PHQ-9 - 23919 - PHQ-9 Billing: Yes ([id number]) BING-7 Assessment Billing - BING-7 Assessment Tool: BING-7 Assessment 60553 ([id number]) Assessment & Plan Assessment & Plan (1) BING (generalized anxiety disorder): Code(s): F41.1 - Generalized anxiety disorder Category: Medical (2) MDD (major depressive disorder), recurrent episode: Code(s): F33.9 - Major depressive disorder, recurrent, unspecified Category: Medical Qualifiers: Major depression episode severity: mild Qualified Code(s): F33.0 - Major depressive disorder, recurrent, mild (3) Overweight with body mass index (BMI) of 28 to 28.9 in adult: Code(s): E66.3 - Overweight; Z68.28 - Body mass index [BMI] 28.0-28.9, adult Category: Medical (4) BMI 28.0-28.9,adult: Code(s): Z68.28 - Body mass index [BMI] 28.0-28.9, adult Category: Medical (5) Hospital discharge follow-up: Code(s): Z09 - Encounter for follow-up examination after completed treatment for conditions other than malignant neoplasm Plan . Medications: New paroxetine HCl (Paxil) 20 mg PO DAILY 30 tabs 1RF metformin ER 750 mg PO QPM 30 tabs 1RF Discontinued paroxetine HCl (Paxil) Discontinued Reason: Doctor's Order 10 mg PO DAILY 30 tabs 1RF metformin ER Discontinued Reason: Doctor's Order 500 mg PO QPM 30 tabs 1RF
== END 2024-10-03 16:58 | disposition home or self-care (01) ==
LOC: HO.HMCFM 15:50
PROVIDERS: PCP Nurse Practitioner Family; Visit Provider Nurse Practitioner Family
DX: F41.1 Generalized anxiety disorder (principal); F33.0 Major depressive disorder, recurrent, mild; E66.3 Overweight; Z68.28 Body mass index [BMI] 28.0-28.9, adult; Z09 Encounter for follow-up examination after completed treatment for conditions other than malignant neoplasm

== ENCOUNTER → 2024-10-03 15:50 | Outpatient (BNVA) | payer OTHER, SELFPAY | PROVIDERS: PCP Nurse Practitioner Family; Visit Provider Nurse Practitioner Family | DX: F41.1 Generalized anxiety disorder (principal); F33.0 Major depressive disorder, recurrent, mild; E66.3 Overweight; Z68.28 Body mass index [BMI] 28.0-28.9, adult; Z79.84 Long term (current) use of oral hypoglycemic drugs; Z79.899 Other long term (current) drug therapy | CPT/HCPCS: 96127 ==

== ENCOUNTER 2024-11-21 15:20 | Outpatient (AMB) | payer OTHER, SELFPAY ==
--- NOTE | 2024-11-21 15:23 | MHC.PC.OV ---
Vital Signs 10/05/24 16:16 11/21/24 16:17 Height 5 ft 1 in Weight 149 lb 164 lb BMI 31.0 Intake Visit Reasons: fu paxil and metformin increase bing/wt mgmt Intake Note: Telehealth follow up review meds Courtesy Van Driver Required: No Allergies doxycycline [DOXYCYCLINE] Allergy (Unknown, Verified 11/21/24 15:24) STOMACH PAINS hydrocodone [From VICODIN] Allergy (Unknown, Verified 11/21/24 15:24) NAUSEA & VOMITING ibuprofen [IBUPROFEN] Allergy (Unknown, Verified 11/21/24 15:24) HIVES, SWELLING, hives nickel [NICKEL] Allergy (Unknown, Verified 11/21/24 15:24) RASH Doxycycline Hyclate Allergy (Unknown, Uncoded 10/03/24 16:31) stomach upset Medication List - Last Reconciled 11/21/24 by Susan Patel, [facility]- albuterol sulfate 90 mcg/actuation 2 puffs inhalation Q4H PRN bupropion HCl XL 300 mg PO DAILY cetirizine (Zyrtec) 10 mg PO DAILY docusate sodium (Colace) 100 mg PO BEDTIME metformin ER 750 mg PO QPM montelukast 10 mg PO BEDTIME multivitamin 1 tab PO DAILY norethindrone-e.estradiol-iron 1 mg-20 mcg (21)/75 mg (7) (08/08 (28)) 1 tab PO DAILY ondansetron 4 mg PO Q6-8H PRN paroxetine HCl (Paxil) 20 mg PO DAILY Tobacco use date assessed: 11/21/24 Dental Screening Dental Screen Date: 11/21/24 Did you have a dental visit in the last 12 months?: Yes Did you have a dental problem in the last 6 months where you did not have access to dental care?: No Was dental information given to patient?: Patient has dentist HPI HPI Comments History of Present Illness Details 34 y/o F with asthma, obesity, MDD, BING Status post lumbar diskectomy 11/06/2024, status post cholecystectomy, Social with 1 son, Paddy age 2,, works at [employer] in [place] Family history father with high cholesterol and anxiety, mother with stroke, depression and anxiety Health Maintenance Tdap 2021 Flu declined Echo 03/31/2013 Pap smear 09/25/2016 [facility] History of Present Illness - The patient is a 34-year-old female presenting for mdd/bing and wt mgmt fu - Notable increase in weight from 149.7 lbs in September to 164 lbs currently. - Increased physical activity, consisting of a two-mile walk four to five days weekly, and improved dietary habits noted without the desired impact on weight. - Describes significant frustration over continued weight gain and associated low self-esteem. - Metformin previously used for weight management showed little effect; patient expresses desire to discontinue. - Current medication regimen includes Paroxetine 20 mg with positive anxiety outcomes and ongoing Bupropion for depression. - Expresses interest in a referral to a medical weight management program, highlighting injectables as she has used before from [facility] with + effect - denies chance of . Assessment and Plan 1. Generalized Anxiety Disorder The current management with Paroxetine 20 mg proves effective in reducing anxiety symptoms. The patient feels comfortable with this dosage, describing improved daily task management without adverse effects. Continued prescription is supported with a 90-day supply issued, also continuing Bupropion for depression management. 2. Weight Gain Patient reports significant weight gain despite lifestyle modifications; discontinuation of Metformin is advised as it lacks efficacy. Referral for medical weight management, including possible use of injectables, is discussed. The patient is encouraged to monitor progress and inform of any developments or required adjustments. 3. Referral for Medical Weight Management Patient is referred to a program focusing on non-surgical weight management treatment, considering options like Ozempic and others. The patient?s insurance coverage and program's billing are discussed, directing the patient to follow up with the program for scheduling actions. RTO Aug for CPE sooner PRN Telehealth Attestation This telehealth visit was conducted via phone call, and all the information documented here is based on the telephonic interaction with the patient, ensuring accuracy and completeness in capturing the details discussed. The patient has been explained that this is an interactive (audio/video) telehealth encounter and what that consists of. The patient understands and wishes to proceed. [employer] platform was used. Total time spent caring for the patient today was 21 minutes. This includes time spent before the visit reviewing the chart, time spent during the visit, and time spent after the visit on documentation, reviewing laboratory results, diagnostic imaging, medications, performing a medically necessary evaluation, counseling on diagnoses, care coordination, ordering appropriate tests, ordering appropriate medications, review of tests performed by other providers, reporting test results with the patient, communication with other healthcare providers. [facility] Medical History Anxiety Degenerative arthritis Back pain Depression Asthma Surgical History Previous back surgery Hx of wisdom tooth extraction Hx of eye surgery Hx of section Hx of cholecystectomy Family History Mother Mental health disorder Asthma Stroke Father Mental health disorder Substance abuse High cholesterol Asthma Maternal Grandmother Cancer Paternal Grandmother Cancer Thyroid disorder Maternal Uncle Cancer Social History Household Members: Spouse and Children Both parents involved: No Caregiver staying overnight: No Housing: House Are you a primary overnight caregiver to a significant other at home: Yes Do you presently have visiting nurse or other home services: No 75 years or older and lives alone: No Alcohol intake: current Alcohol intake frequency: holidays/special occasions only Patient Tobacco Use Status: Never used Tobacco e-Cigarette/Vaping Use: Never Used Second Hand Smoke Exposure: No Current occupational status: employed Current occupation: [employer] Cognitive needs: No Hearing needs: No Vision needs: Yes (wear glasses) Questionnaire Thrive Questionnaire Date Thrive assessed: 07/26/24 BING-7 AMB Questionnaire BING-7 Date BING - 7 assessed: 08/02/24 Source: Developed by Drs. Khurram Garcia, Yecenia Singer, Govind Gandhi and colleagues, with an educational daylin from [employer]. Physical exam (Primary Care) BMI result Body Mass Index 31.0 Tobacco/Smoking Status: Tobacco use Status Tobacco use date assessed 11/21/24 11/21/24 15:25 Patient Tobacco Use Status Never used Tobacco 11/21/24 15:25 e-Cigarette/Vaping Use Never Used 11/21/24 15:25 Thrive Assessment: Date of Thrive Assessment Date Thrive assessed 07/26/24 11/21/24 15:25 Telehealth Telehealth Telehealth Platform: [facility] Location of provider rendering services: practice address Location of patient: address on file Patient Identification confirmed using: Name, : Yes Telehealth method: voice only Patient verbally consented to treatment: Yes Patient verbally consented to billing insurance company: Yes Patient informed of any privacy concerns related to visit: Yes Minutes spent on Phone/Video with Pt.: 10 Coding Level of Care Code Tele Est Pt Level 3 (50593) Complex EM visit Add On G2211 Diagnoses BING (generalized anxiety disorder) F41.1 Mild episode of recurrent major depressive disorder F33.0 Major depression episode severity: mild Obesity (BMI 30-39.9) E66.9 Assessment & Plan Assessment & Plan (1) BING (generalized anxiety disorder): Code(s): F41.1 - Generalized anxiety disorder Category: Medical (2) MDD (major depressive disorder), recurrent episode: Code(s): F33.9 - Major depressive disorder, recurrent, unspecified Category: Medical Qualifiers: Major depression episode severity: mild Qualified Code(s): F33.0 - Major depressive disorder, recurrent, mild (3) Obesity (BMI 30-39.9): Code(s): E66.9 - Obesity, unspecified Category: Medical Plan . Orders: Referrals Medical Weight Management Referral E66.9 - Obesity, unspecified Medications: Refilled paroxetine HCl (Paxil) 20 mg PO DAILY 90 tabs 1RF Discontinued metformin ER Discontinued Reason: Doctor's Order 750 mg PO QPM 30 tabs 1RF
[2024-11-21 16:17] VITALS: BMI 31.0
== END 2024-11-21 16:25 | disposition home or self-care (01) ==
LOC: HO.HMCFM 15:20
PROVIDERS: PCP Nurse Practitioner Family; Visit Provider Nurse Practitioner Family
DX: F41.1 Generalized anxiety disorder (principal); F33.0 Major depressive disorder, recurrent, mild; E66.9 Obesity, unspecified; Z68.31 Body mass index [BMI] 31.0-31.9, adult

== ENCOUNTER → 2024-11-21 15:20 | Outpatient (BNVA) | payer OTHER, SELFPAY | PROVIDERS: PCP Nurse Practitioner Family; Visit Provider Nurse Practitioner Family | DX: F41.1 Generalized anxiety disorder (principal); F33.0 Major depressive disorder, recurrent, mild; E66.9 Obesity, unspecified; Z68.31 Body mass index [BMI] 31.0-31.9, adult; Z79.899 Other long term (current) drug therapy | CPT/HCPCS: 98966 ==

== ENCOUNTER → 2024-11-22 09:05 | Outpatient (BNVA) | payer OTHER, SELFPAY | PROVIDERS: PCP Nurse Practitioner Family; Visit Provider Physician Assistant Surgical ==

== ENCOUNTER 2024-12-07 08:12 | Outpatient (AMB) | payer OTHER, SELFPAY ==
--- NOTE | 2024-12-07 12:34 | A.OFFVIS_ITS ---
VS Expanded 12/07/24 13:08 Height 5 ft 1 in Weight 162 lb 6 oz BMI 30.7 Body Fat % 37.6 Body Fat Mass 61 Fat Free Mass 101.4 Visceral Fat Rating 7 Body Water % 44.8 Body Water Mass 72.8 Basal Metabolic Rate/Score 1,416 Intake Visit Reasons: TV [employer] [facility] Allergies doxycycline [DOXYCYCLINE] Allergy (Unknown, Verified 12/07/24 12:34) STOMACH PAINS hydrocodone [From VICODIN] Allergy (Unknown, Verified 12/07/24 12:34) NAUSEA & VOMITING ibuprofen [IBUPROFEN] Allergy (Unknown, Verified 12/07/24 12:34) HIVES, SWELLING, hives nickel [NICKEL] Allergy (Unknown, Verified 12/07/24 12:34) RASH Doxycycline Hyclate Allergy (Unknown, Uncoded 12/07/24 12:34) stomach upset Medication List - Last Reconciled 12/07/24 by Dusty Carver MD albuterol sulfate 90 mcg/actuation 2 puffs inhalation Q4H PRN bupropion HCl XL 300 mg PO DAILY cetirizine (Zyrtec) 10 mg PO DAILY docusate sodium (Colace) 100 mg PO BEDTIME montelukast 10 mg PO BEDTIME multivitamin 1 tab PO DAILY norethindrone-e.estradiol-iron 1 mg-20 mcg (21)/75 mg (7) ( FE 08/08 ()) 1 tab PO DAILY ondansetron 4 mg PO Q6-8H PRN paroxetine HCl (Paxil) 20 mg PO DAILY HPI HPI TV [employer] MWL: Details: Start time: 12.30pm, End time: 13.15 I spent 40 minutes speaking with the patient on the phone plus an additional 5 minutes reviewing and updating records for a total of 45 minutes HPI Comments Details: Previous weight loss efforts: Intermittent fasting self diet and exercise, Phentermine (2 mths at [facility]), Semaglutide (08/11 - 04/12: 50lbs loss from 172lbs to 122lbs), Wegovy (1.7mg and 2.4mg: severe side effects) Wakes up: 6.15am, Sleeps: 10pm Breakfast: skip Lunch: 12-2pm (1-2/wk) Dinner: 6pm (chicken, tuna, vegetables) Snacks: Perfect protein bar or Chombani protein drink, after dinner (ice cream) Exercise: none Beverages: (Coffee: 1 cup/d with creamer), tea: none, soda: none, juice: none, ETOH: / [facility] Medical History Anxiety Degenerative arthritis Back pain Depression Asthma Surgical History Previous back surgery Hx of wisdom tooth extraction Hx of eye surgery Hx of section Hx of cholecystectomy Family History Mother Mental health disorder Asthma Stroke Father Mental health disorder Substance abuse High cholesterol Asthma Maternal Grandmother Cancer Paternal Grandmother Cancer Thyroid disorder Maternal Uncle Cancer Social History Household Members: Spouse and Children Both parents involved: No Caregiver staying overnight: No Housing: House Are you a primary child care development specialist to a significant other at home: Yes Do you presently have visiting nurse or other home services: No 75 years or older and lives alone: No Alcohol intake: current Alcohol intake frequency: holidays/special occasions only Patient Tobacco Use Status: Never used Tobacco e-Cigarette/Vaping Use: Never Used Second Hand Smoke Exposure: No Current occupational status: employed Current occupation: [employer] Cognitive needs: No Hearing needs: No Vision needs: Yes (wear glasses) Telehealth Telehealth Telehealth Platform: Telephone Location of provider rendering services: practice address Location of patient: address on file Patient Identification confirmed using: Name, : Yes Telehealth method: voice only Patient verbally consented to treatment: Yes Patient verbally consented to billing insurance company: Yes Patient informed of any privacy concerns related to visit: Yes Minutes spent on Phone/Video with Pt.: 45 Assessment & Plan Assessment & Plan (1) Obesity (BMI 30-39.9): Code(s): E66.9 - Obesity, unspecified Category: Medical Plan: 1. Take the Phentermine daily at 10am. We discussed the potential side-effects of the Phentermine such as irritability, dry mouth, difficulty sleeping, dizziness, numbness in feet and high blood pressure. I asked her to get a blood pressure monitor and measure the blood pressure daily in the morning and evening. She needs to send the blood pressure readings daily and to call the office for blood pressure over 140/80 and she understands that. 2. You will receive a link of our software jeanna to generate an individualized nutritional and exercise plan specific for you. Please send me a screenshot of the plans you will generate Meal to include lean meat (beef, fish, pork, turkey, chicken), or tajik yogurt, or egg whites, or beans with a salad with olive oil and fruits (berries, pears, apples, kiwi). Avoid salt, breads, potatoes, rice, pasta, desserts. 3. If you choose shakes, each shake would be drunk slowly, like coffee in a period of 2 hours. 4. If you choose bars, cut each bar in 4 pieces and eat each piece in 30min to make each bar last 2 hours. 5. I emphasized the importance of measuring accurately the food portion and measure it when serving the food in plate 6. The meal portions include a specific number of forks of meat and salad. You always eat the meat portion but you can replace up to half of salad/vegetables portion with rice, potatoes or pasta, or a fruit if you like. The less you do it the better weight loss will be. 7. One full-size fork is what it can be scooped on the fork without falling aside and not what can be bit with the fork. Use regular forks like those you find in a typical restaurant. 8. Please buy the body composition scale we discussed and send me weight measurements as soon as possible and then once a week. Always include your diet and exercise plan. 9. The best choice would be to purchase a stationary bike, elliptical or treadmill at home that can track calories. Let me know if you do so I can give you an exercise plan. 10. It is important of avoiding and while on Phentermine. 11. Goal is to lose at least 1.5-2lbs per week 12. Goal to lose at least 10% of your weight, which is about 16lbs. Minimum weight goal: 146lbs before surgery 13. Please follow the diet plan exactly without any change. If you don't like something about the plan or you feel hungry you need to communicate with me so I can help you revise the plan. You should not change the plan yourself. Medications: New phentermine must administer 30 minutes before or 1-2 hours after breakfast 37.5 mg PO DAILY 30 caps 0RF E66.9 - Obesity, unspecified, Z68.30 - Body mass index [BMI] 30.0-30.9, adult
[2024-12-07 13:08] VITALS: BMI 30.7
== END 2024-12-07 13:17 | disposition home or self-care (01) ==
LOC: HO.HBS 08:12
PROVIDERS: PCP Nurse Practitioner Family; Visit Provider Surgery
DX: E66.9 Obesity, unspecified (principal)
CPT/HCPCS: 99204

== ENCOUNTER 2025-03-24 14:48 | Outpatient (AMB) | payer OTHER, SELFPAY ==
--- OUTSIDE RECORDS SUMMARY | 2025-03-24 14:55 | XMS_ITS | Encounter Summary ---
Author Organization [facility] Address [address] [place] [id number] Phone Care Team Providers Care Field Foreman Name Role Phone Sheila Lombardi [employer]NAGEMENT OFFICER Unavailable Jeane Mejia CNM Unavailable [phone] Nava Welsh [employer] MANAGEMENT OFFICER Unavailable Flora Chou [employer] MANAGEMENT OFFICER Unavailable [phone] Karina Calhoun MD Unavailable Alma Yoon MD Unavailable Lilibeth Paul [employer] MANAGEMENT OFFICER Unavailable Ena Waddell MD Unavailable [phone] Mariajose Jimenez [employer] MANAGEMENT OFFICER Unavailable [phone]CS Unavailable [email or web address] Ena Waddell MD Primary Care Provider [phone] Encounter Details Date Type Department Care Team (Latest Contact Info) Description 09/17/2017 Transcribe Orders [facility] [address] [place] [address] Kiah Castro PA [address] [place], [place] [id number] [email or web address] Amenorrhea (Primary Dx) Social History Tobacco Use Types Packs/Day Years Used Date Smoking Tobacco: Never Assessed Comments Unknown Sex and Gender Information Value Date Recorded Sex Assigned at Not on file Legal Sex Female 9:05 PM EDT Gender Identity Not on file Sexual Orientation Not on file documented as of this encounter Plan of Treatment Upcoming Encounters Date Type Department Care Team (Late st Contact Info) Description 04/06/2025 4:10 PM EDT Office Visit [facility] [address] [place] [address] Radhames Joannayolanda Yung, CN [address] [facility], [address] [place] [address] [email or web address] documented as of this encounter Results * HCG (quantitative blood), (09/17/2017 4:30 PM EST) HCG BETA <0.1 mIU/mL [facility] Comment: Interpretation: FEMALE: Negative Result: Less than 5 mIU/ml. 1 Week Post Conception: 0 - 50 mIU/ml. 4 Weeks Post Conception: 3,000 - 19,000 mIU/ml. 12 Weeks Post Conception: 16,000 - 160,000 mIU/ml. Blood 09/17/2017 4:30 PM EST 09/17/2017 4:36 PM EST us Kiah JACOBO LAB BLOOD ORDERABLES Final Resu lt [facility] [address] [place] [address] documented in this encounter Visit Diagnoses Diagnosis Amenorrhea- Primary Absence of menstruation documented in this encounter Additional Health Concerns Infection Onset Date Last Indicated Resolved Time CoV-Exposed Comment:Potential covid exposure to staff member that tested + 11/26/2021 12/03/2021 12/07/2021 1: 23 AM EDT documented as of this encounter Care Teams Field Foreman Relationship Specialty Start Date End Date Ena Waddell MD [address] [place] [id number] PCP - General 07/23/17 Sheila Lombardi NP [address] [place] [address] [address] [place] [address] Historical LMR Provider 05/06/17 2 Jeane Mejia CNM [address] [place] [address] Historical LMR Provider 05/06/17 2 Nava Welsh COUNTY [employer] MANAGEMENT OFFICER [address] [place] [address] Historical LMR Provider 05/06/17 2 Flora Chou COUNTY RECORDS MANAGEMENT OFFICER [address] [place] [address] [email or web address] Historical LMR Provider 05/06/17 Karina Calhoun MD [address] [facility] [address] [place] [address] Historical LMR Provider 05/06/1707/27 Amla Yoon MD [address] [place] [address] Historical LMR Provider 05/06/17 Lilibeth Paul, COUNTY RECORDS MANAGEMENT OFFICER [address] [place] [address] Historical LMR Provider 05/06/17 2 Ena Waddell MD [address] [place] [address] Historical LMR Provider 05/06/17 07/27/21 Mariajose Jimenez NP [address] [place] [address] Historical LMR Provider 05/06/17 2 Jeane Starkey, GUS [email or web address] Historical LMR Provider 05/06/17 07/27/21 documented as of this encounter Additional Source Comments The information contained in this document represents components of the legal health record. It is not the complete legal health record.[facility]
--- OUTSIDE RECORDS SUMMARY | 2025-03-24 14:55 | XMS_ITS | Clinical Summary ---
Author Organization [facility] Address [address] [place] [address] Care Team Providers Care Servicer Name Role Phone Unavailable Primary Care Provider Unavailabl e Surgical History Surgery Date Site/Laterality Comments SECTION N/A PROCEDURE: HISTORICAL DELIVERY Medical History Medical History Date Comments Mild intermittent asthma, uncomplicated DX:Mild intermittent asthma, uncomplicated History of cholecystectomy DX:Hi story of cholecystectomy Family History Medical History Relation Name Comments Other: Other Father Depression Mother Other: Other Mother Stroke Mother Relation Name Status Comments Father Mother Social History Tobacco Use Types Packs/Day Years Used Date Smoking Tobacco: Never Smokeless Tobacco: Never Comments Unknown Sex and Gender Information Value Date Recorded Sex Assigned at Not on file Legal Sex Female 2:38 AM EST Gender Identity Not on file Sexual Orientation Not on file Obstetrics History Last Filed Vital Signs Vital Sign Reading Time Taken Comments Blood Pressure - - Pulse - - Temperature - - Respiratory Rate - - Oxygen Saturation - - Inhaled Oxygen Concentration - - Weight 56.7 kg (125 lb) 09/03/2023 3:00 PM EST Height 157.5 cm (5' 2 ) 09/03/2023 3:00 PM EST Body Mass Index 22.86 09/03/2023 3:00 PM EST Plan of Treatment Upcoming Encounters Date Type Department Care Team (Late st Contact Info) Description 10/17/2025 10:30 AM EDT Office Visit Bariatric Surgery [facility] [address] [facility] [address] [place] [address] Chrales Martinez MD [address] [place] [phone] Health Maintenance Due Date Last Done Comments Hepatitis B Vaccines (1 of 3 - 19+ 3-dose series) 2008 Cervical Cancer Screening: P ap Smear 2010 HIV Screening 06/14/2024 Hepatitis C Screening 06/14/2024 Social Influencers of Health Screening 06/14/2024 Depression Screening 07/20/2024 COVID-19 Vaccine (4 - 2024-2 6 season) 2025 04/29/2021, 07/29/2020, 07/07/2020 Influenza Vaccine (#1) 2025 DTaP,Tdap,and Td Vaccines (2 - Td or Tdap) 11/01/2031 10/31/2021 HIB Vaccines Aged Out No longer eligi ble based on patient's age to complete this topic HPV Vaccines Aged Out No longer eligi ble based on patient's age to complete this topic Hepatitis A Vaccines Aged Out No long er eligible based on patient's age to complete this topic IPV Vaccines Aged Out No longer eligi ble based on patient's age to complete this topic MMR Vaccines Aged Out No longer eligi ble based on patient's age to complete this topic Meningococcal ACWY Vaccine Aged Out N o longer eligible based on patient's age to complete this topic Meningococcal B Vaccine Aged Out No l onger eligible based on patient's age to complete this topic Pneumococcal Vaccine: Pediatrics (0 to 5 Years) and At-Risk Patients (6 to 49 Years) Aged Out No longer eligible b ased on patient's age to complete this topic RSV Immunization Patients Under 20 months Aged Out No longer eligible b ased on patient's age to complete this topic Varicella Vaccines Aged Out No longer eligible based on patient's age to complete this topic
--- OUTSIDE RECORDS SUMMARY | 2025-03-24 14:55 | XMS_ITS | Encounter Summary ---
Author Organization [facility] Address [address] [place] [address] Phone Care Team Providers Care Polo Coach Name Role Phone Sheila Lombardi SEWER BRICKLAYER Unavailable Jeane Mejia CNM Unavailable Nava Welsh SEWER BRICKLAYER Unavailable Flora Chou SEWER BRICKLAYER Unavailable [phone] Karina Calhoun MD Unavailable Alma Yoon MD Unavailable Lilibeth Paul SEWER BRICKLAYER Unavailable [phone] Ena Waddell MD Unavailable Mariajose Jimenez SEWER BRICKLAYER Unavailable [phone] Jeane Starkey RDCS Unavailable [email or web address] Ena Waddell MD Primary Care Provider Encounter Details Date Type Department Care Team (Latest Contact Info) Description 11/11/2018 Transcribe Orders [facility] Laboratory [address] [place] [address] Kiah Castro PA [address] 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[employer] Not on file No t on file Not on file documented as of this encounter Plan of Treatment Upcoming Encounters Date Type Department Care Team (Late st Contact Info) Description 04/06/2025 4:10 PM EDT Office Visit [facility] [address] [place] [address] Joanna Ricci, CN [address] [facility], [address] [place] [address] [email or web address] Step documented as of this encounter Results * (ABNORMAL) Urinalysis w/reflex Urine Culture (11/11/2018 1:33 PM EDT) COLOR Yellow Yellow [facility] CLARITY HAZY [facility] GLUCOSE Negative Negative [facility] BILI Negative Negative [facility] KETONES Trace(A) Negative [facility] SPECIFIC GRAVITY >1.030 1.005 - 1.030 [facility] BLOOD Negative Negative [facility] PH 5.5 5.0 - 8.0 [facility] Protein-UA Negative Negative [facility] NITRITE Negative Negative [facility] Leukocyte esterase, ur Trace(A) Negative [facility] Urine (Urine) 11/11/2018 1:3 3 PM EDT 11/11/2018 1:35 PM EDT us Kiah JACOBO URINE ORDERABLES Final Result [facility] [address] [place] [address] * (ABNORMAL) CBC and differential (11/11/2018 1:33 PM EDT) WBC 10.28 3.40 - 11.20 K/uL [facility] RBC 4.38 3.80 - 4.80 M/uL [facility] HGB 13.3 12.0 - 15.0 g/dL [facility] HCT 40.6 36.0 - 46.0 % [facility] PLT 224 130 - 400 K/uL [facility] MCV 92.7 79.0 - 98.0 fL [facility] MCH 30.4 27.0 - 34.8 pg [facility] MCHC 32.8 31.5 - 36.0 g/dL [facility] RDW 12.1 10.8 - 14.6 % [facility] MPV 11.7 9.4 - 12.4 fl [facility] NRBC 0.00 0.00 /100 WBCs [facility] ABSOLUTE NRBC 0.00 0.00 K/uL [facility] DIFF METHOD Auto [facility] NEUTS 61.1 45.30 - 77.70 % [facility] LYMPHS 29.1 12.30 - 39.70 % [facility] MONOS 6.9 4.10 - 12.80 % [facility] EOS 1.7 0 - 7.2 % [facility] BASOS 0.9 0 - 2.80 % [facility] Granulocytes, immature (%) 0.3 0.0 - 0.9 % [facility] ABSOLUTE NEUTS 6.29 1.40 - 7.70 K/uL [facility] ABSOLUTE LYMPHS 2.99 0.60 - 3.20 K/uL [facility] ABSOLUTE MONOS 0.71(H) 0.11 - 0.59 K/uL [facility] ABSOLUTE EOS 0.17 0.01 - 0.50 K/uL [facility] ABSOLUTE BASOS 0.09(H) 0.00 - 0.08 K/uL [facility] Granulocytes, immature 0.03 0.00 - 0.05 K/uL [facility] Blood 11/11/2018 1:3 3 PM EDT 11/11/2018 1:37 PM EDT us Kiah JACOBO LAB BLOOD ORDERABLES Final Resu lt [facility] [address] [place] [address] * TSH (11/11/2018 1:33 PM EDT) TSH 2.31 0.27 - 4.20 uIU/mL [facility] Blood 11/11/2018 1:33 PM EDT 11/11/2018 1:37 PM EDT Kiah JACOBO LAB BLOOD ORDERABLES Final Resu lt [address] [address] * (ABNORMAL) Comprehensive metabolic panel (11/11/2018 1:33 PM EDT) SODIUM 140 133 - 146 mmol/L [facility] POTASSIUM 3.5 3.3 - 5.1 mmol/L [facility] CHLORIDE 99 96 - 108 mmol/L [facility] CO2 23 21 - 35 mmol/L [facility] BUN 9 6 - 19 mg/dL [facility] CREATININE 0.80 0.5 - 1.5 mg/dL [facility] GLUCOSE 81 70 - 99 mg/dL [facility] ALBUMIN 4.6 3.9 - 4.8 g/dL [facility] TOTAL PROTEIN 7.9 6.5 - 8.0 g/dL [facility] CALCIUM 9.8 8.4 - 10.3 mg/dL [facility] ALKALINE PHOSPHATASE 72 39 - 117 U/L [facility] TOTAL BILIRUBIN 0.3 0.0 - 1.2 mg/dL [facility] AST 19 0 - 37 U/L [facility] ALT 19 0 - 40 U/L [facility] GLOBULIN 3.3 1 - 4.8 g/dL [facility] EGFR 100 >59 mL/min/1.7 3m2 [facility] Comment:If patient is black, multiply result by 1.159. Estimated glomerular filtration rate calculated using the CKD-EPI equation. ANION GAP 22(H) 10 - 20 mmol/L [facility] Blood 11/11/2018 1:33 PM EDT 11/11/2018 1:37 PM EDT Kiah JACOBO LAB BLOOD ORDERABLES Final Resu lt [address] [address] documented in this encounter Visit Diagnoses Diagnosis Anxiety- Primary Anxiety state, unspecified documented in this encounter Additional Health Concerns Infection Onset Date Last Indicated Resolved Time CoV-Exposed Comment:Potential covid exposure to staff member that tested + 11/26/2021 12/03/2021 12/07/2021 1: 23 AM EDT documented as of this encounter Care Teams Polo Coach Relationship Specialty Start Date End Date Ena Waddell MD [address] [place] [address] PCP - General 07/23/17 Sheila Lombardi, KIRIT [address] [place] [address] Historical LMR Provider 05/06/17 2 Jeane Mejia CNM [address] [place] [address] Historical LMR Provider 05/06/17 2 Nava Welsh SEWER BRICKLAYER [address] [place] [address] Historical LMR Provider 05/06/17 2 Flora Chou SEWER BRICKLAYER [address] [place] [address] Historical LMR Provider 05/06/17 Karina Calhoun MD [address] [place] [address], [address] [place] [address] Historical LMR Provider 05/06/1707/27 Alma Yoon MD [address] [place] [address], [facility] [address] [place] [address] Historical LMR Provider 05/06/17 Lilibeth Paul NP [address] [place] [address] Historical LMR Provider 05/06/17 2 Ena Waddell MD [address] [place] [address] Historical LMR Provider 05/06/17 07/27/21 Mariajose Jimenez NP [address] [place] [address] Historical LMR Provider 05/06/17 2 Jeane Starkey, MICHEL Historical LMR Provider 05/06/17 07/27/21 documented as of this encounter Additional Source Comments The information contained in this document represents components of the legal health record. It is not the complete legal health record.[facility]
--- OUTSIDE RECORDS SUMMARY | 2025-03-24 14:55 | XMS_ITS | Encounter Summary ---
Author Organization [facility] Address [address] [place] [address] Phone Care Team Providers Care Project Inspector Name Role Phone Sheila Lombardi MOLDING LINE ASSISTANT Unavailable [phone] Jeane Mejia CNM Unavailable [phone] Nava Welsh MOLDING LINE ASSISTANT Unavailable Flora Chou MOLDING LINE ASSISTANT Unavailable [phone] Karina Calhoun MD Unavailable Alma Yoon MD Unavailable Lilibeth Paul MOLDING LINE ASSISTANT Unavailable [phone] Ena Waddell MD Unavailable [phone] Mariajose Jimenez MOLDING LINE ASSISTANT Unavailable [phone] Jeane Starkey RDCS Unavailable [email or web address] Ena Waddell MD Primary Care Provider Encounter Details Date Type Department Care Team (Latest Contact Info) Description 10/08/2017 Transcribe Orders [facility] Laboratory [address] [place] [address] Kiah Castro PA [address] [place], [place] [id number] [email or web address] Elevated C-reactive protein (CRP) (Primary Dx) Social History Tobacco Use Types [...] Description 04/06/2025 4:10 PM EDT Office Visit [facility] [address] [place] [address] Joanna Ricci, YANNICK [address] [facility], [address] [place] [address] [email or web address] documented as of this encounter Results * (ABNORMAL) Sedimentation rate (ESR) (10/08/2017 3:53 PM EDT) ESR 26(H) 0 - 20 mm/h [facility] Blood 10/08/2017 3:53 PM EDT 10/08/2017 3:55 PM EDT Kiah JACOBO LAB BLOOD ORDERABLES Final Resu lt Performing Organization Address City/[facility]/ZIP Co de Phone Number [address] [address] * (ABNORMAL) C-Reactive Protein (10/08/2017 3:53 PM EDT) Pathologist [facility] C REACTIVE PROTEIN 1.0(H) 0 - 0.5 mg/L [facility] Blood 10/08/2017 3:53 PM EDT 10/08/2017 3:55 PM EDT Kiah Gloria JACOBO LAB BLOOD ORDERABLES Final Resu lt Performing Organization Address City/[facility]/ZIP Co de Phone Number [address] [address] documented in this encounter Visit Diagnoses Diagnosis Elevated C-reactive protein (CRP)- Primary documented in this encounter Additional Health Concerns Infection Onset Date Last Indicated Resolved Time CoV-Exposed Comment:Potential covid exposure to staff member that tested + 11/26/2021 12/03/202112/07/2021 1: 23 AM EDT documented as of this encounter Care Teams Project Inspector Relationship Specialty Start Date End Date Ena Waddell MD [address] [place] [address] PCP - General 07/23/17 Sheila Lombardi, MOLDING LINE ASSISTANT [address] [place] [address] Historical LMR Provider 05/06/17 2 Jeane Mejia CNM [address] [place] [address] Historical LMR Provider 05/06/17 2 Nava Welsh NP [address] [place] [address] Historical LMR Provider 05/06/17 2 Flora Chou MOLDING LINE ASSISTANT [address] [place] [address] [email or web address] Historical LMR Provider 05/06/17 Karina Calhoun MD [address] [place] [address] [address] [place] [address] Historical LMR Provider 05/06/1707/27 Alma Yoon MD [address] [place] [address] Historical LMR Provider 05/06/17 Lilibeth Paul, MOLDING LINE ASSISTANT [address] [place] [address] Historical LMR Provider 05/06/17 2 Ena Waddell MD [address] [place] [address] [email or web address] Historical LMR Provider 05/06/17 07/27/21 Mariajose Jimenez NP [address] [place] [address] Historical LMR Provider 05/06/17 2 Jeane Starkey RDCS Historical LMR Provider 05/06/17 07/27/21 documented as of this encounter Additional Source Comments The information contained in this document represents components of the legal health record. It is not the complete legal health record.[facility]
--- OUTSIDE RECORDS SUMMARY | 2025-03-24 14:55 | XMS_ITS | Clinical Summary ---
Author Organization [facility] Address [address] [place] [phone] Phone Care Team Providers Care Comb Setter Name Role Phone Flora Chou NP Unavailable [phone] Alma Yoon MD Unavailable [phone] Ena Waddell MD Primary Care Provider Allergies Active Allergy Reactions Criticality Noted Date Comments Ibuprofen Hives Low 11/12/2017 Nickel Rash Low 05/17/2021 Medications CETIRIZINE HCL (ZYRTEC ORAL) Active buPROPion (WELLBUTRIN XL) 300 MG ER 24 hr tablet 1 tablet in the morning Orally Once a day Active albuterol 90 mcg/actuation inhaler 04/28/20 21 Active montelukast (SINGULAIR) 10 mg tablet 03/22/20 21 Active therapeutic multivitamin tablet Take 1 tablet by mouth daily. Active docusate sodium (COLACE) 50 MG capsule Take 50 mg by mouth 2 (two) times a day. Active semaglutide (WEGOVY) 0.25 mg/0.5 mL subcutaneous pen injection Inject 0.25 mg under the skin every 7 days. Active 08/08, 28, 1 mg-20 mcg (21)/75 mg (7) per tabletIndications :Encounter for surveillance of contraceptive pills TAKE 1 TABLET BY MOUTH EVERY DAY 84 tablet 03/03/20 25 Active norethindrone-eth inyl estradiol (08/08 28 DAY, 21X7,) 1 mg-20 mcg (21)/75 mg (7) per tabletIndications :Encounter for surveillance of contraceptive pills Take 1 tablet by mouth daily. 84 tablet 3 03/31/20 24 025 Discontinued Active Problems Problem Noted Date Diagnosed Date Decreased libido 04/01/2024 Assessment & Plan (04/01/2024 2:47 PM EDT): Discussed that disorders of sexual desire are usually multifactorial. We discussed that most sexual issues do not have an easy or immediate treatment and that there may be a period of trial and error with management approaches before her sexual function improves. Reviewed that sexual function is highly dependent upon patient's physical and psychological well-being as well as the quality of the relationship with one's partner. Reviewed lifestyle changes that can physical and emotional well-being, reduce fatigue and stress, and strengthen the partnership, including healthy diet, regular exercise, regular sleep schedule, stress management, and regular time set aside for couples time. We reviewed that many individuals find that sexual desire grows if they regularly masturbate or schedule time for intimacy with partner, even if that does not include intercourse. Reviewed receptive sexual desire and recommended Come as You Are by Sowmya Saldaña as well is [employer] website. Also discussed role of couples and/or sex counseling, info given in AVS Anxiety and depression 06/03/2021 Overview (06/03/2021): -Taking Wellbutrin 300mg -Had a therapist for 6 yrs Assessment & Plan (11/17/2021 4:18 AM EDT): On wellbutrin Assessment & Plan (10/18/2021 8:26 AM EDT): Therapist retired, continuing to take wellbutrin and feels stable. Pt declines referral to see another therapist. Resolved Problems Problem Noted Date Diagnosed Date Resolved Date care following delivery 11/28/2021 01/05/2023 Overview (11/28/2021): Primary at 35w2d for arrest of descent following PPROM Baby boy, Paddy Assessment & Plan (01/08/2022 2:19 AM EDT): -Doing well incision healing well with good approximation Assessment & Plan (12/19/2021 11:24 AM EDT): May remove remaining steri-strips Return for full PP check-up in 2-3 weeks delivery, delivered , current hospitalization 11/27/2021 01/08/2022 Assessment & Plan (11/27/2021 9:42 AM EDT): POD#1 Discussed importance of ambulation to promote healing Encouraged to take pain medication routinely Processed experience with both Christopher and her At risk for depression 11/27/2021 01/05/2023 Overview (11/27/2021): Has emotional check-in scheduled on December 11 at 3:30 with Kimberly Assessment & Plan (01/08/2022 2:20 AM EDT): -Feeling a lot better now since last visit. Stated she was going through a lot w/ the baby coming so early Assessment & Plan (12/19/2021 11:23 AM EDT): Continue wellbutrin 300mg daily Consider establishing with therapist Will check in with PCP about need for other medication Assessment & Plan (11/27/2021 9:48 AM EDT): Christopher currently takes wellbutrin 300mg daily She stated that she is worried about depression - we discussed that she is at risk for PP depression given her mental health history and her unanticipated experience Reviewed she may benefit from an additional medication for anxiety in the period Recommended planning at 2-week check-in appointment to assess her emotional adjustment - Christopher agrees, appt scheduled for 12/11 with CORA Soriano anemia 11/27/2021 01/05/2023 Overview (11/27/2021): Admission H/H 10.7/32.8 on admission POD#1 H/H 7.3/22.5 Assessment & Plan (11/27/2021 9:51 AM EDT): Discussed s/s of anemia, advised Christopher to let us know if she has symptoms when up. Liquid multivitamin with iron ordered to begin iron replacement Discussed she will need continued iron replacement upon discharge Normal intrauterine , antepartum 11/24/2021 11/27/2021 premature rupture of membranes in third trimester 11/24/2021 12/19/2021 Overview (11/24/2021): 11/24/21: ROM at 1640 Confirmed with +nitrazine and ferning Vertex on bedside ultrasound Heartburn during in third trimester 10/09/1912/19/2021 Assessment & Plan (11/17/2021 4:20 AM EDT): Check in at [facility] Assessment & Plan (10/08/2021 10:31 AM EDT): Has been taking Pepcid once daily but is still sometimes having breakthrough heartburn. Encouraged increase to 20 mg BID Vaginal bleeding in pregnanc y, second trimester 07/26/2021 08/19/2021 Assessment & Plan (08/16/2021 4:56 PM EST): Has not had any additional bleeding. Has maintained pelvic rest. Assessment & Plan (07/26/2021 8:46 PM EST): Christopher presents, anxious and tearful. She began bleeding with bright red blood last night after sex. She states there was a lot of bright red blood and it has continued to come out on pad and in toilet. She feels pressure in abdomen, over the last hour she has felt a little crampy. Very anxious that she is miscarrying. O: AAO x 3, Anxious and Tearful Abdomen: soft, gravid, 1-2 fb below U FHR audible with doppler at normal rate SSE: There is a 1 cm dark red clot at cervix which was removed. In looking at the cervix it appears to be mild friable. Cervical os appears closed. When removing the speculum another small clot could be visualized as well, smaller than the first US done after PE - per US tech shows 2 cm subchorionic hematoma. Placenta appears normal and away from os, + FM and cardiac activity A: Vaginal bleeding at 17 weeks Initially though likelycervical however d/t amount of bleeding and clotting cannot R/O placental bleeding US shows there is a subchorionic hematoma which is probable source of bleeding P: US ordered - US tech able to see today in office Reassured pt that the baby is fine and we discussed subchorionic hematoma We reviewed this is a collection of blood which often resolves with time and sometimes can cause bleeding or spotting. It also can in less often times, get larger and can be a risk factor for miscarriage. Recommended repeat US in 2 weeks for anatomy US with appt to follow and we will observe the hematoma at that time Until then, recommended no sex or anything inside the vagina Call with heavier vaginal bleeding, large clots or severe pain Subchorionic hematoma in second trimester 07/26/2021 11/27/2021 Overview (08/19/2021): Identified d/t bleeding at 17 weeks Reassessed at 20 wk US - no longer visible Assessment & Plan (08/16/2021 4:57 PM EST): Per pt, hematoma not seen on US today. Preliminary report not yet available. Discussed that I will review US read and if still present, would continue to be on pelvic rest. If resolved, okay to resume normal activities. Assessment & Plan (07/26/2021 8:47 PM EST): Will reassess at 20 week scan Nausea and vomiting in 06/03/2021 08/16/2021 Assessment & Plan (07/21/2021 8:35 PM EST): Continues to have nausea and occasional vomiting. Would like to try VB6. Also struggling with constipation. Taking magnesium but it is not helping. Rx for stool softener sent along with VB6. Assessment & Plan (06/03/2021 9:14 AM EST): Anticipatory guidance provided regarding nausea and vomiting in . We reviewed that nausea is a common symptom and is self-limited, usually resolving by mid- with or without treatment. We discussed that initial treatment involves reassurance and counseling on dietary and lifestyle changes, including eating consistently every 2-3 hours, bland foods, rj tea or chews, gum, acupressure bands. We reviewed realistic expectations, and discussed that interventions may not completely resolve nausea. Tips for Managing Nausea in Early Rj jay, chews or tea Peppermint tea Eat small frequent meals- graze every 2-3 hours so your stomach is never empty. Avoid large meals. Eat slowly. Keep snacks (crackers, pretzels, nuts) by your bedside- sometimes eating a little bit before getting up will help a lot. Avoid foods that have strong odors. Sucking on a lemon or new [place] slice may help. Don't worry about adhering to a balanced diet unless you are diabetic; just eat whatever appeals to you until the nausea goes away. Hyder foods often make nausea worse. Acupressure wristbands might help- sold in drug and health food stores. Acupuncture may also be helpful. Try drinking carbonated beverages between meals; wait for 30 minutes after eating to drink liquids. vitamins can make nausea worse; try taking them before bed, and if that doesn't help, stop taking them until your nausea goes away. Discuss with your provider. If you are not taking vitamins you should take one tablet of folic acid daily (0.4 mg which is 400micrograms per day) during the first trimester. Folic acid will not make nausea worse. Try vitamin B6 25mg three times a day can help and it's considered to be safe. Most importantly, nausea is very common . However, if you have severe vomiting and you aren't keeping anything down for 24 hours or more, give us a call and we'll help. She was instructed to call if she has severe N/V, is unable to keep food and fluid down x 24 hours, stops producing urine, feels faint or dizzy, or loses a significant amount of weight. -Taking dramamine and preggie pops Encounter for supervision of normal first in third trimester 06/03/2021 01/05/2023 Overview (11/27/2021): CNM OB-CMI score: 1 [06/03/2021] Group PN care - gave info 08/16 Rh + GC/Chlam - Neg/Neg PAP 06/2020 negative Tdap 10/31/21 Flu * COVID-19 - vaccine info in chart is not correct. Has first dose 06/2020, second dose 07/2020, and has had booster. Hgb 11.6 GTT 139, counseling done 09/20/20, see TE 28 wk Repeat RPR NR GBS * PPBC - OCPs screening NT Negative *Wants to save her placenta for encapsulation. Assessment & Plan (11/17/2021 4:20 AM EDT): Christopher is a 31 y.o. at 34w1d doing well. Denies VB/LOF/Ctxs. + FM. Questions about what to bring to the hospital - we discussed. Christopher is hoping for baby to be cleaned off after , prior to being put on her abdomen. Also plans to bring home placenta for encapsulation. Planning epidural in labor. Discussed GBS testing for 36 weeks. Assessment & Plan (11/05/2021 5:31 PM EDT): Christopher is doing well today. She is feeling daily movement. Tdap given. No particular questions/concerns today. Return OB in two weeks. Assessment & Plan (10/18/2021 8:29 AM EDT): Christopher is a 31yo @ 29+6 wks. EPDS 8 today. Reports feeling great, emotionally. Having some anxiety related to ...just hoping baby is okay with all of her coughing. Baby active, denies vb, lof, ctxs. We discussed tdap which she wants to get at her NV and comforts for her coughing and sneezing: increase fluids, hot broth, rest, steam therapy. LARY 2 weeks and prn. Assessment & Plan (10/08/2021 10:33 AM EDT): Christopher is a 31 y.o. at 28w3d doing well. Denies VB/LOF/Ctxs. + FM. Reviewed her GTT - it was 139 and she had already discussed that this is high normal with Kimberly. At this time, Christopher opts to just cautiously watch diet and avoid simple sugars. We discussed that if she has other evidence of GDM, we would recommend 3 hour at that time or could consider referral to [facility]. She agrees. Assessment & Plan (09/03/2021 5:12 PM EST): Christopher is doing well. Wondering about vitamin B6. Does not have much of an appetite. Reviewed that she could try taking it a couple of times a day to see if that helps. Baby is very active. 28 week labs reviewed and ordered. GC/CT sent today Assessment & Plan (08/16/2021 4:59 PM EST): Christopher is a 31 y.o. at 20w6d, here with partner Anatomy scan today - prelim report not in yet but patient reports she was told it was normal, it's a boy. Has felt flutters. COVID-19 - vaccine info in chart is not correct. Has first dose 06/2020, second dose 07/2020, and has had booster. OPG - discussed and gave info in portal. CBE - discussed class options at [facility] in four weeks Assessment & Plan (07/21/2021 8:38 PM EST): Christopher is doing ok. She continues to feel not great due to nausea and constipation. No other questions or concerns. Happy to hear heart beat today. Normal expectations for movement reviewed. Anatomy scan ordered and scheduled. Assessment & Plan (06/19/2021 3:52 PM EST): Pt reports feeling ongoing nausea. Denies vomiting and states that she can eat well, but just has persistent nausea all day long. We discussed small, frequent meals, more tolerable protein sources. Pt to go to lab for pending labwork. Reviewed negative NT testing. Pt wants to buy a doppler and has many questions regarding safety/efficacy. We discussed that though hearing a baby's heart beat can be reassuring, it can also be a source of anxiety if she heard something unusual/didn't know what it was. Assessment & Plan (06/03/2021 9:51 AM EST): Christopher is a 31 y.o. at 10w2d states she feels well today. Denies any concerns at this time. Denies any LOF/Vaginal bleeding/Ucs. -Advised on quickening and what to expect in the upcoming weeks -Review warning signs and when/how to contact midwives - labs will be ordered for FOB. -Advised on care structure -NT for genetic testing -NV in 1 week for NT and LARY Asthma during 06/03/202112/18 Overview (06/03/2021): -Albuterol PRN X1 week usually -Singular daily Assessment & Plan (10/18/2021 8:25 AM EDT): Has a URI and was seen by her PCP who is also managing her asthma flares during this time. Denies sob when taking her inhalers as prescribed. Discussed importance of breathing and O2 for baby. Pt resistant to take meds in , but understood following our discussion that breathing is essential for both she and baby. Discussed when to seek emergent care for sob. with uncertain erick es in first trimester 05/20/2021 08/16/2021 Assessment & Plan (05/20/2021 4:32 PM EDT): Will use dating by US KATIANA 12/28/2021 Initial OB packet given Early stage of 05/20/2021 Assessment & Plan (05/20/2021 4:31 PM EDT): We discussed that it is common to have a period of time where is unknown and there are many people who have accidental alcohol exposure during that time. While it is impossible to say how much is too much alcohol, Christopher is only an occasional drinker and does not drink heavily. We discussed the biggest risk of FAS is heavy and persistent alcohol use Reinforced continued abstinence Schedule OB intake ASCUS of cervix with negative high risk HPV 01/06/2019 08/16/2021 Overview (07/17/2021): 2017: ASCUS/HPV neg Plan: repeat in 3 years (2019) NILM HPV negative in 2020 Encounters Date Type Department Care Team Description 03/09/2025 Telephone [facility] [address] [place] [id number] Unknown, Unknown, Appointment 03/02/2025 Refill [facility] [address] [place] [address] Lilibeth Ramírez CNM Medication Refill from Last 3 Months Immunizations Immunization Administration Dates Next Due Tdap 10/31/2021 Family History Medical History Relation Comments Hyperlipidemia Father Hypertension Father Breast cancer Maternal Grandmother Lung cancer Maternal Uncle Fibroids Mother Stroke Mother Breast cancer Paternal Grandmother Relation Status Comments Father Alive Maternal Grandmother Alive Maternal Uncle Mother Alive Paternal Grandmother Alive Son Alive Social History Tobacco Use Types Packs/Day Years Used Date Smoking Tobacco: Never Smokeless Tobacco: Never Tobacco Cessation:Counseling Given: Not Answered Alcohol Use Standard Drinks/Week Comments Yes 0 (1 standard drink = 0.6 oz pur e alcohol) ocassionally Education Answer Date Recorded Are you interested in more education? Not on tom e 11/14/2022 Are you concerned about learning? Not on file 11/14/2022 No 11/14/2022 No 11/14/2022 Digital Access Answer Date Recorded No 12/12/2022 No 12/12/2022 Reliable internet access at home? Not on file 12/12/2022 Device with a working camera? 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 @ [employer] Not on file No t on file Not on file Last Filed Vital Signs Vital Sign Reading Time Taken Comments Blood Pressure 100/68 03/31/2024 3:06 PM EDT Pulse 98 11/30/2021 9:30 AM EDT Temperature 36.7 C (98.1 F) 11/30/2021 9:30 AM EDT Respiratory Rate 18 11/30/2021 9:30 AM EDT Oxygen Saturation 97% 11/30/2021 9:30 AM EDT Inhaled Oxygen Concentration - - Weight 62.6 kg (138 lb) 03/31/2024 3:06 PM EDT Height 157.5 cm (5' 2 ) 03/31/2024 3:06 PM EDT Body Mass Index 25.24 03/31/2024 3:06 PM EDT Plan of Treatment Upcoming Encounters Date Type Department Care Team (Late st Contact Info) Description 04/06/2025 4:10 PM EDT Office Visit [facility] [address] [place] [address] Joanna Ricci CNM [address] [facility], [address] [place] [address] [email or web address] Health Maintenance Due Date Last Done Comments DEPRESSION SCREENING 2001 PAP SMEAR 06/21/2023 06/21/2020, 09/18, 09/25/2016, Additional history exists INFLUENZA VACCINE (#1) 2025 COVID-19 VACCINE ( season) 2025 04/29/2021, 07/29/2020, 07/07/2020 SCREENING FOR DIABETES 03/12/2026 03/12/2023 Adult Td,Tdap Booster 11/01/2031 10/31/2021 HEPATITIS C SCREENING Completed 06/19/2021 HIV ONE-TIME SCREENING (18-65 YEARS) Completed 06/19/2021 SMOKING STATUS SCREENING (Once After 26 Yrs) Completed 03/31/2024 HEPATITIS A VACCINES Aged Out No long er eligible based on patient's age to complete this topic HIB VACCINES Aged Out No longer eligi ble based on patient's age to complete this topic MENINGOCOCCAL VACCINES (ACWY) Aged Out No longer eligible based on patient's age to complete this topic MENINGOCOCCAL VACCINES (B) Aged Out N o longer eligible based on patient's age to complete this topic PNEUMOCOCCAL VACCINES (0-49 years) Aged Out No longer eligible based on patient's age to complete this topic Medical Devices Not on file Procedures Procedure Name Priority Date/Time Associated Diagnosis Comments HEPATITIS C ANTIBODY, QUALITATIVE Routine 06/19/2021 4:02 PM EST Need for hepatitis C screening test PAP TEST Routine 06/21/2020 12:00 AM EST from Last 3 Months or Most Recently Relevant to Health Maintenance Results * Hepatitis C antibody, qualitative (06/19/2021 4:02 PM EST) HCV NON-REACTIV E NON-REACTI VE [facility] Blood 06/19/2021 4:02 PM EST 06/19/2021 4:23 PM EST us Joanna Ricci [facility] BLOOD ORDERABLES Final Result [address] [address] * Pap Smear (06/21/2020 12:00 AM EST) 06/21/2020 06/22/2020 8:2 2 AM EST Narrative SEE NARRATIVE - 06/27/2020 11:29 AM EST [address] [address] Price Lister: Giselle Monroy MD [facility] Cytology Report FINAL DIAGNOSIS A. PAP SMEAR (SUREPATH) CE: SPECIMEN ADEQUACY: Satisfactory for evaluation; transformation zone present. INTERPRETATION: NEGATIVE FOR INTRAEPITHELIAL LESION OR MALIGNANCY. Electronically Signed Out By: VANESSA Ingram(ASCP) The Pap test is a screening test primarily for squamous cancers and precursors and has associated false-negative and false-positive results. New technologies such as liquid-based preparations may decrease but will not eliminate all false-negative results. Regular sampling and follow-up of unexplained clinical signs and symptoms are recommended to minimize false negative results. PROCEDURES/ADDENDA HPV Testing (Requested) Ordered Date: 06/22/2020 A. PAP SMEAR (SUREPATH) CE: Human Papilloma Virus Test Negative for high-risk human papillomavirus types 16, 18, 45 and the Other high risk probe set (Includes 31, 33, 35, 39, 51, 52, 56, 58, 59, 66, 68) by Neotropix Onclarity HR-HPV analysis. Clinical correlation is advised. This HPV test was performed at [facility], [address] [place] [address]. This test has been FDA approved for SurePath cervical cytology specimens. The accuracy and precision of this test for all other specimen sources has been verified in the Cytopathology Laboratory of the [facility] and has not been cleared or approved by the U.S. Food and Drug Administration. Clinical correlation is advised. CLINICAL HISTORY Date of Last Menstrual Period: 05-29-2020 Other Clinical Conditions: Screening Pap SPECIMEN SOURCE A: PAP SMEAR (SUREPATH) CE Patient Name: CHRISTOPHER BRODY : 1990 (Age: 30) Sex: F Institution: [facility] Location: [facility] Date of Collection: 06/21/2020 Date of Reported: 06/27/2020 11:29 Results to: Alma Yoon MD Alma Yoon MD CYTOLOGY ORDERABLES Final Res ult SEE NARRATIVE from Last 3 Months or Most Recently Relevant to Health Maintenance Insurance [employer] Member Subscriber Plan / Payer (Ef fective 2022-Present) Name:Christopher Brody Relation to Subscriber:Self Name:Christopher Brody Payer ID:[id number] (NAIC) Type:PPO Address: [place] [phone] [employer] Member Subscriber Plan / Payer (Ef fective 2022-Present) Name:Christopher Brody Relation to Subscriber:Self Name:RyanCarlottaChristopher Payer ID:[id number] (NAIC) Type:PPO Address: [place] [phone] [employer] Member Subscriber Plan / Payer (Ef fective 2022-Present) Name:Christopher Brody Relation to Subscriber:Self Name:Christopher Brody Payer ID:[id number] (NA) Type:PPO Address: [place] [phone] [employer] Advance Directives For more information, please contact: [phone] (9AM - 5PM [facility], Thursday-Thursday) Documents on File Type Date Recorded Patient Technician Automatic [employer]ation Healthcare Proxy 12/02/2021 12:46 PM * Full Code (Latest Code Status on File) Date Activated Date Inactivated Comments 11/26/2021 5:08 PM Question Answer Comments Code Status Confirmed With: Patient Care Teams Comb Setter Relationship Specialty Start Date End Date Ena Waddell MD [address] [place] [id number] [email or web address] PCP - General 07/23/17 Flora Chou NP [address] [place] [address] [email or web address] Historical LMR Provider 05/06/17 Alma Yoon MD [address] [place] [id number] [email or web address] Historical LMR Provider 05/06/17 Additional Source Comments The information contained in this document represents components of the legal health record. It is not the complete legal health record.[facility]
--- OUTSIDE RECORDS SUMMARY | 2025-03-24 14:55 | XMS_ITS | Encounter Summary ---
Author Organization [facility] Address [address] [facility] [address] [place] [id number] Phone Care Team Providers Care Executive Consultant Name Role Phone Flora Chou NP Unavailable [phone] Alma Yoon MD Unavailable [phone] Ena Waddell MD Primary Care Provider Encounter Details Date Type Department Care Team (Late Contact Info) Description 11/26/2021 Procedure Pass [facility] [address] [place] [address] Social History Tobacco Use Types Packs/Day Years Used Date Smoking Tobacco: Never Smokeless Tobacco: Never Alcohol Use Standard Drinks/Week Comments Not Currently 0 (1 standard drink = 0.6 oz pur e alcohol) ocassionally Comments No Sex and Gender Information Value Date Recorded Sex Assigned at Not on file Legal Sex Female 9:05 PM EDT Gender Identity Not on file Sexual Orientation Not on file 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 @ [employer] Not on file No t on file Not on file documented as of this encounter Plan of Treatment Upcoming Encounters Date Type Department Care Team (Late Contact Info) Description 04/06/2025 4:10 PM EDT Office Visit [facility] [address] [place] [address] Joanna Ricci CNM [address] [facility], [address] [place] [address] documented as of this encounter Visit Diagnoses Not on filedocumented in this encounter Additional Health Concerns Infection Onset Date Last Indicated Resolved Time CoV-Exposed Comment:Potential covid exposure to staff member that tested + 11/26/2021 12/03/2021 12/07/2021 1: 23 AM EDT documented as of this encounter Care Teams Executive Consultant Relationship Specialty Start Date End Date Ena Waddell MD [address] [place] [address] [email or web address] PCP - General 07/23/17 Flora Chou NP [address] [place] [phone] [email or web address] Historical LMR Provider 05/06/17 Alma Yoon MD [address] [place] [id number] [email or web address] Historical LMR Provider 05/06/17 documented as of this encounter Additional Source Comments The information contained in this document represents components of the legal health record. It is not the complete legal health record.[facility]
--- NOTE | 2025-03-24 15:03 | MHC.PC.OV ---
Vital Signs 03/24/25 15:05 Height 5 ft 1 in Weight 171 lb 2 oz BMI 32.3 BP 106/72 Blood Pressure Location Lt brachial Position Sitting Respiration 14 Pulse 90 Pulse Source Pulse Oximeter Temp 98.1 F Temp Source Oral Pulse Oximetry (%) 98 Oxygen Delivery Method Room Air Intake Visit Reasons: schedule her for CPE anytime after 03/18/2025 Intake Note: Physical Regulatory Affairs Strategy Specialist Required: No Allergies doxycycline (DOXYCYCLINE) Allergy (Unknown, Verified 03/24/25 15:15) STOMACH PAINS hydrocodone (From VICODIN) Allergy (Unknown, Verified 03/24/25 15:15) NAUSEA & VOMITING ibuprofen (IBUPROFEN) Allergy (Unknown, Verified 03/24/25 15:15) HIVES, SWELLING, hives nickel (NICKEL) Allergy (Unknown, Verified 03/24/25 15:15) RASH Doxycycline Hyclate Allergy (Unknown, Uncoded 12/07/24 12:34) stomach upset Medication List - Last Reconciled 03/24/25 by Susan Patel, PROPELLER TESTER- albuterol sulfate 90 mcg/actuation 2 puffs inhalation Q4H PRN bupropion HCl XL 300 mg PO DAILY cetirizine (Zyrtec) 10 mg PO DAILY docusate sodium (Colace) 100 mg PO BEDTIME montelukast 10 mg PO BEDTIME multivitamin 1 tab PO DAILY norethindrone-e.estradiol-iron 1 mg-20 mcg (21)/75 mg (7) (08/08 (28)) 1 tab PO DAILY paroxetine HCl (Paxil) 20 mg PO DAILY phentermine 37.5 mg PO DAILY Tobacco use date assessed: 11/21/24 Dental Screening Dental Screen Date: 11/21/24 HPI HPI Comments History of Present Illness Details 34 y/o F with asthma, obesity, MDD, BING, family hx pancreatic ca Status post lumbar diskectomy 11/06/2024, status post cholecystectomy, Social (will be getting a divorce) with 1 son, Paddy age 3,works at [employer] in [place] [employer] Family history father with high cholesterol, anxiety, pancreatic cancer; mother with stroke, depression and anxiety Health Maintenance Tdap 2021 Flu declined Echo 03/31/2013 Pap smear 09/25/2016, Has upcoming appt 2024. [facility] Optho wears glasses, no changes. Unsure of date of last exam History of Present Illness - The patient is a 34-year-old female presenting with the need for a complete physical examination. - Asthma controlled with prn NIK sparing use - Persistent depression and anxiety - taking paxil and wellbutrin. - Allergy managed with cetirizine. - Obesity managed with phentermine; not losing wt. active w/ wt mgmt. not sure about surgery. - Irregular menstrual cycles present, LMP January. Social History - Reports stress and recent personal and financial challenges, including marital problems and financial burdens related to insurance changes. - Active with exercise, including walking 2-3 times per week, covering 2-3 miles. - Focus on protein intake but struggling to incorporate sufficient amounts. - Reported regular use of medications for mood and weight management. - Irregular menstrual cycles; sexually active with contraception discussions deferred. Health Maintenance - Tetanus vaccination up-to-date. - Pap smear completed in 2017 with a request for recent pathology if done. - Encouraged regular exercise and nutrition improvement, focusing on high protein intake. Review of Systems - Respiratory: Reports exacerbations related to medication lapses, otherwise managed. - Psychological: Reports mood stability problems when deviating from prescribed medications. - Gynecological: Reports irregular menstruation, possible absence of menstrual periods. - General: Reports chronic fatigue and stress, associated with personal and lifestyle challenges. Physical Exam General: Well developed, well nourished, in no acute distress. Appears stated age. BMI of 32.3 Head: Normocephalic, atraumatic. Eyes: Pupils are equal, round and reactive to light and accommodation. Conjunctivae are clear. Vision grossly normal. Ears: TMs clear AU, EACS WNL Nose: Patent, without discharge. Neck: Supple, no adenopathy or thyromegaly. Breast: Edu on SBE Lungs: Clear to auscultation bilaterally. No rales, rhonchi or wheeze noted. Good air flow in all sanches. Heart: Regular rate and rhythm. No murmurs, click, rubs or gallops are noted. Abdomen: Bowel sounds present in all quadrants. The abdomen is soft, nontender, with no masses or organomegaly noted. No hernias are noted. : Deferred. Reviewed recommendations for routine RESIDENT CAREGIVER. Pulses: Peripheral pulses are equal and palpable bilaterally. Extremities: No clubbing, cyanosis nor edema is noted. Neurologic: Gait and station normal. Cranial Nerves 2-12 intact. Motor strength grossly symmetrical and intact. No sensory loss. Balance normal. Skin: No rashes, ulcers, or lesions noted. Turgor is good. Skin color is good. Hair and nails are without abnormalities. Psych: Normal eye contact, affect and mood appropriate, and normal interactions. Patient is alert and appropriate to context. Results Labs from 08/05/2024 show a normal CBC, normal electrolytes, normal renal function, hemoglobin A1c of 5.2%, normal LFTs, mild elevation in total cholesterol 212, LDL 132, HDL 57, triglycerides 119, normal B12 folate and TSH. U preg neg today Discussion Notes During the visit, extensive discussions around the patient's mental health challenges and medication management took place. Adjustments were made in prescription refills to ensure continued management, emphasizing the importance of stability in mental health medication. The potential use of Contrave as a combination therapy for weight management was explained, detailing its composition and expected outcomes. For irregular menstrual cycles, further consultation with OB-RESIDENT CAREGIVER was suggested, considering continued irregularity and possible stress or hormonal imbalances. The patient was educated about the importance of medication compliance, adequate protein intake, and consistent follow-up for asthma management and mental health stabilization. Future visits were scheduled with specific timelines to evaluate the efficacy of new treatment regimens. Patient was given time to ask questions. All questions were answered to their satisfaction. Assessment and Plan 1. Asthma - Maintain current medication regimen. 2. Depression and Anxiety - Ensure paroxetine and bupropion continued with adjusted regimen. 3. Allergic Rhinitis - Maintain current management with cetirizine. 4. Obesity - Adjust therapy with bupropion SR 150mg BID and naltrexone 25mg QHS x 2 weeks the BID. - Monitor dietary intake and physical activity. 5. Irregular Menstrual Cycles - OB-RESIDENT CAREGIVER referral suggested. Patient Instructions - Continue using medications for asthma as directed. - Always refill paroxetine on time. - Begin taking bupropion SR as instructed twice a day. - Start taking naltrexone, at night for two weeks, then twice a day. - Exercise regularly and eat more foods high in protein. - Schedule a visit with OB-RESIDENT CAREGIVER if periods do not return to normal. - Follow up in 12 weeks for reassessment. Consent Patient was informed and verbally consented to the use of an ambient scribe for clinic note documentation during this visit. An additional 30 minutes was spent addressing the problem(s) noted at todays visit. This includes time spent before the visit reviewing the chart, time spent during the visit, and time spent after the visit on documentation reviewing laboratory results, diagnostic imaging, medications, performing a medically necessary evaluation, counseling on diagnoses, care coordination, ordering appropriate tests, ordering appropriate medications, review of tests performed by other providers, reporting test results with the patient, communication with other healthcare providers. COUNTS INCLUDE 234 BEDS AT THE [facility] Medical History Anxiety Degenerative arthritis Back pain Depression Asthma Surgical History Previous back surgery Hx of wisdom tooth extraction Hx of eye surgery Hx of section Hx of cholecystectomy Family History Mother Mental health disorder Asthma Stroke Father Mental health disorder Substance abuse High cholesterol Asthma Maternal Grandmother Cancer Paternal Grandmother Cancer Thyroid disorder Maternal Uncle Cancer Social History (Updated 03/24/25 @ 15:09 by Kathleen Booker CMA) Household Members: Spouse and Children Both parents involved: No Caregiver staying overnight: No Housing: House Are you a primary palliative care nurse to a significant other at home: Yes Do you presently have visiting nurse or other home services: No 75 years or older and lives alone: No Alcohol intake: current Alcohol intake frequency: holidays/special occasions only Patient Tobacco Use Status: Never used Tobacco e-Cigarette/Vaping Use: Never Used Second Hand Smoke Exposure: No Current occupational status: employed Current occupation: [employer] Cognitive needs: No Hearing needs: No Vision needs: Yes (wear glasses) Questionnaire Thrive Questionnaire Date Thrive assessed: 07/26/24 I am a: Patient What is your living situation today?: I have a steady place to live Within the past 12 months, did the food you bought not last and you didn't have the money to get more?: Never true Within the past 12 months, did you worry whether your food would run out before you got money to buy more?: Never true Do you have trouble paying for medicines?: No Do you have trouble getting transportation to medical appointments?: No Do you have trouble paying your heating and electricity bill?: No Do you have trouble taking care of your child, family member or friend?: No Do you have trouble with day-to-day activities such as bathing, preparing meals, shopping, managing finances, etc.?: No Are you currently unemployed and looking for a job?: No Are you interested in more education?: No Please select the resources that you would like help with: None Currently or been in a relationship where the following occur: No concerns reported THRIVE Score: 0 AUDIT C Alcohol Use Questionnaire (AUDIT-C) 1. How often do you have a drink containing alcohol?: Monthly or less 2. How many drinks containing alcohol do you have on a typical day when you are drinking?: 1 or 2 3. How often do you have six or more drinks on one occasion?: Never Total Score: 1 BING-7 AMB Questionnaire BING-7 Date BING - 7 assessed: 08/02/24 Source: Developed by Drs. Khurram Garcia, Yecenia Singer, Govind Gandhi and colleagues, with an educational daylin from [employer]. ACT Questionnaire In the past 4 weeks, how much of the time did your asthma keep you from getting as much done at work, school or at home?: None of the time During the past 4 weeks, how often have you had shortness of breath?: Not at all During the past 4 weeks, how often did your asthma symptoms wake you up at night or earlier than usual in the morning?: Not at all During the past 4 weeks, how often have you had to use your rescue inhaler or nebulizer medication?: Not at all How would you rate your asthma control during the past 4 weeks?: Completely controlled ACT Interpretation: Negative Score: 25 Physical exam (Primary Care) Vital Signs: Last Vital Signs Temp 98.1 F 03/24/25 15:05 Pulse 90 03/24/25 15:05 Resp 14 03/24/25 15:05 BP 106/72 03/24/25 15:05 Pulse Ox 98 03/24/25 15:05 Oxygen Delivery Method Room Air 03/24/25 15:05 BMI result Body Mass Index 32.3 BMI Assessment/Plan discussion: High BMI High, discussed plan: lifestyle Tobacco/Smoking Status: Tobacco use Status Tobacco use date assessed 11/21/24 03/24/25 15:09 Patient Tobacco Use Status Never used Tobacco 03/24/25 15:09 e-Cigarette/Vaping Use Never Used 03/24/25 15:09 Thrive Assessment: Date of Thrive Assessment Date Thrive assessed 07/26/24 03/24/25 15:09 Currently or been in a relationship where the following occur: No concerns reported Office Procedures Office Procedure Misc Details: G0449 15 MINUTE OBESITY EDUCATION 15 minutes spent Discussing different forms of medications to help with weight loss. Discouraged the use of GLP-1s due to the need to use lifelong, weight gain after discontinuation, cost and cancer risk. Educated about the use of Wellbutrin which can be used in patients without a seizure history. This medication works by blocking out the reward center related to mindless eating. It also has a mild stimulating effect. The side effect profile includes mild anxiety as well as a slight dizzy sensation. Another medication used is metformin, this is a diabetic medication. This medication has GI side effects. But can be very beneficial in aiding with weight loss in patients without diabetes. Topiramate was also discussed. This is a seizure medication with side effect profile that includes need to monitor LFTs as well as blood counts. One of the side effects is weight loss. Another medication, Phentermine is a stimulant/controlled substance. This is an anorexient that is used short-term medication used. =. Finally the use of a medication called Contrave, which is Wellbutrin + naltrexone can be used. The brand name is usually not cover therefore would have to prescribe the 2 medications individually. This medication works just as the Wellbutrin; naltrexone aides in further blocking of the reward center to aide in wt loss. After discussion of the above, the patient wishes to proceed with Wellbutrin + Naltrexone Office Procedure Billing Code: AMB Procedure Billing Code (G0449 15 MINUTE OBESITY EDUCATION) Results AMB Test Urine AMB Test Urine Negative Last Edit by Kathleen Booker CMA on 03/24/25 16:01 Coding Level of Care Code Est Pt Level 4 (83151) Est Pt Prev Care 18-39y(95847) Diagnoses Encounter for general adult medical examination without abnormal findings Z00.00 BING (generalized anxiety disorder) F41.1 Mild episode of recurrent major depressive disorder F33.0 Major depression episode severity: mild Obesity (BMI 30-39.9) E66.9 Mild intermittent asthma in adult without complication J45.20 History of Papanicolaou smear of cervix Z92.89 Family history of pancreatic cancer Z80.0 Urine test negative Z32.02 CPT Codes Office Procedure - Office Procedure Billing Code: AMB Procedure Billing Code ([id number]) Additional Codes Asthma Control Questionnaire - ACT Interpretation: Negative ([id number]) Assessment & Plan Assessment & Plan (1) Encounter for general adult medical examination without abnormal findings: Onset Date: ~03/24/25 Code(s): Z00.00 - Encounter for general adult medical examination without abnormal findings Category: Medical (2) BING (generalized anxiety disorder): Code(s): F41.1 - Generalized anxiety disorder Category: Medical (3) MDD (major depressive disorder), recurrent episode: Code(s): F33.9 - Major depressive disorder, recurrent, unspecified Category: Medical Qualifiers: Major depression episode severity: mild Qualified Code(s): F33.0 - Major depressive disorder, recurrent, mild (4) Obesity (BMI 30-39.9): Code(s): E66.9 - Obesity, unspecified Category: Medical (5) Mild intermittent asthma in adult without complication: Code(s): J45.20 - Mild intermittent asthma, uncomplicated Category: Medical (6) History of Papanicolaou smear of cervix: Onset Date: ~2016 Code(s): Z92.89 - Personal history of other medical treatment Category: Medical (7) Family history of pancreatic cancer: Comment: dad Code(s): Z80.0 - Family history of malignant neoplasm of digestive organs Category: Medical (8) Urine test negative: Code(s): Z32.02 - Encounter for test, result negative Plan . Orders: Orders AMB HCG Urine Test Today N91.2 - Amenorrhea, unspecified Medications: New naltrexone 25 mg (1/2 x 50 mg) PO BID 90 tabs 0RF bupropion HCl SR (Wellbutrin SR) 150 mg PO BID 180 tabs 0RF Refilled paroxetine HCl (Paxil) 20 mg PO DAILY 90 tabs 1RF Discontinued phentermine must administer 30 minutes before or 1-2 hours after breakfast Discontinued Reason: Patient Completed Course 37.5 mg PO DAILY 30 caps 0RF E66.9 - Obesity, unspecified, Z68.30 - Body mass index [BMI] 30.0-30.9, adult Patient Instructions: Health screenings for women You should visit your health care provider from time to time, even if you are healthy. The purpose of these visits is to: Screen for medical issues Assess your risk for future medical problems Encourage a healthy lifestyle Update vaccinations and other preventive care services Help you get to know your provider in case of an illness Information Even if you feel fine, you should still see your provider for regular checkups. These visits can help you avoid problems in the future. For example, the only way to find out if you have high blood pressure is to have it checked regularly. High blood sugar and high cholesterol levels also may not have any symptoms in the early stages. A simple blood test can check for these conditions. There are specific times when you should see your provider or receive specific health screenings. The [place] Preventive Services Task Force publishes a list of recommended screenings. Below are screening guidelines for women ages 18 to 39. BLOOD PRESSURE SCREENING Your blood pressure should be checked at least once every 3 to 5 years if: Your blood pressure is in the normal range (top number less than 120 mm Hg and bottom number less than 80 mm Hg) You don't have risk factors for high blood pressure Ask your provider if you need your blood pressure checked more often if: The top number is 120 to 129 mm Hg or the bottom number is 70 to 79 mm Hg You have diabetes, heart disease, kidney problems, are overweight, or have certain other health conditions You have a first-degree relative with high blood pressure You are Black You had high blood pressure during a If the top number is 130 mm Hg or greater or the bottom number is 80 mm Hg or greater, this is considered stage 1 hypertension. Schedule an appointment with your provider to learn how you can reduce your blood pressure. Watch for blood pressure screenings in your area. Ask your provider if you can stop in to have your blood pressure checked. BREAST CANCER SCREENING Experts do not agree about the benefits of breast self-exams in finding breast cancer or saving lives. Talk to your provider about what is best for you. A screening mammogram is not recommended for most women under age 40. Your provider may discuss and recommend mammograms, MRI scans, or ultrasounds if you have an increased risk for breast cancer, such as: A mother or sister who had breast cancer at a young age (most often starting screening earlier than the age the close relative was diagnosed) You carry a high-risk genetic marker CERVICAL CANCER SCREENING Cervical cancer screening should start at age 21 years unless your provider advises otherwise. After the first test: Women ages 21 through 29 should have a Pap test every 3 years. Exoprts do not agree on whether HPV testing is recommended for this age group. Women ages 30 through 65 should be screened with either a Pap test every 3 years or the HPV test every 5 years or both tests every 5 years (called cotesting ). Women who have been treated for precancer (cervical dysplasia) should continue to have Pap tests for 20 years after treatment or until age 65, whichever is longer. If you have had your uterus and cervix removed (total hysterectomy), and you have not been diagnosed with cervical cancer or precancer (high grade cervical neoplasia), you do not need cervical cancer screening. CHOLESTEROL SCREENING Cholesterol screening should begin at: Age 45 for women with no known risk factors for coronary heart disease Age 20 for women with known risk factors for coronary heart disease Repeat cholesterol screening should take place: Every 5 years for women with normal cholesterol levels More often if changes occur in lifestyle (including weight gain and diet) More often if you have diabetes, heart disease, kidney problems, or certain other conditions DIABETES SCREENING You should be screened for diabetes starting at age 35 and then repeated every 3 years if you have no risk factors for diabetes. Screening may need to start earlier and be repeated more often if you have other risk factors for diabetes, such as: You have a first degree relative with diabetes. You are overweight or have obesity. You have high blood pressure, prediabetes, or a history of heart disease. Screening for diabetes should be done if you are planning to become and you are overweight and have other risk factors such as high blood pressure. DENTAL EXAM Go to the dentist once or twice every year for an exam and cleaning. Your dentist will evaluate if you need more frequent visits. EYE EXAM Have an eye exam every 5 to 10 years before age 40. If you have vision problems, have an eye exam every 2 years or more often if recommended by your provider. You should have an eye exam that includes an examination of your retina (back of your eye) at least every year if you have diabetes. IMMUNIZATIONS Commonly needed vaccines include: Flu shot: get one every year. COVID-19 vaccine: ask your provider what is best for you. Tetanus-diphtheria and acellular pertussis (Tdap) vaccine: have one at or after age 19 as one of your tetanus-diphtheria vaccines if you did not receive it as an adolescent. Tetanus-diphtheria: have a booster (or Tdap) every 10 years. Varicella vaccine: receive 2 doses if you never had chickenpox or the varicella vaccine. Hepatitis B vaccine: receive 2, 3, or 4 doses, depending on your exact circumstances. Measles, mumps, and rubella (MMR) vaccine: receive 1 to 2 doses if you are not already immune to MMR. Your provider can tell you if you are immune. Ask your provider about the human papillomavirus (HPV) vaccine if: You have not received the HPV vaccine in the past You have not completed the full vaccine series (you should catch up on this shot) Ask your provider if you should receive other immunizations if you have certain health problems that increase your risk for some diseases such as pneumonia. INFECTIOUS DISEASE SCREENING Women who are sexually active should be screened for chlamydia and gonorrhea up until age 25. Women 25 years and older should be screened for chlamydia and gonorrhea if at high risk. Screening for hepatitis C: All adults ages 18 to 79 should get a one-time test for hepatitis C. people should be screened at every . Screening for human immunodeficiency virus (HIV): All people ages 15 to 65 should get a one-time test for HIV. Depending on your lifestyle and medical history, you may also need to be screened for infections such as syphilis and HIV, as well as other infections. PHYSICAL EXAM All adults should visit their provider from time to time, even if they are healthy. The purpose of these visits is to: Screen for disease Assess your risk of future medical problems Encourage a healthy lifestyle Update your vaccinations and other preventive care services Maintain a relationship with a provider in case of an illness Your height, weight, and BMI should be checked at every exam. During your exam, your provider may ask you about: Depression and anxiety Diet and exercise Alcohol and tobacco use Safety issues, such as using seat belts, smoke detectors, and intimate partner violence Your medicines and risk for interactions SKIN SELF-EXAM Your provider may check your skin for signs of skin cancer, especially if you're at high risk, such as if you: Have had skin cancer before Have close relatives with skin cancer Have a weakened immune system OTHER SCREENING Talk with your provider about colon cancer screening if you have a strong family history of colon cancer or polyps, or if you have had inflammatory bowel disease or polyps yourself. Routine bone density screening of women under 40 is not recommended.
[2025-03-24 15:05] VITALS: BP 106/72; PULSE 90; RESP 14; TEMP 36.7; O2SAT 98; BMI 32.3
== END 2025-03-24 16:05 | disposition home or self-care (01) ==
LOC: HO.HMCFM 14:48
PROVIDERS: PCP Nurse Practitioner Family; Visit Provider Nurse Practitioner Family
DX: Z00.00 Encounter for general adult medical examination without abnormal findings (principal); J45.20 Mild intermittent asthma, uncomplicated; N91.2 Amenorrhea, unspecified; E66.9 Obesity, unspecified; Z68.32 Body mass index [BMI] 32.0-32.9, adult; Z32.02 Encounter for pregnancy test, result negative; F41.1 Generalized anxiety disorder; F33.0 Major depressive disorder, recurrent, mild; Z92.89 Personal history of other medical treatment; Z80.0 Family history of malignant neoplasm of digestive organs

== ENCOUNTER → 2025-03-24 14:48 | Outpatient (BNVA) | payer OTHER, SELFPAY | PROVIDERS: PCP Nurse Practitioner Family; Visit Provider Nurse Practitioner Family | DX: Z00.00 Encounter for general adult medical examination without abnormal findings (principal); F41.9 Anxiety disorder, unspecified; E66.9 Obesity, unspecified; J30.9 Allergic rhinitis, unspecified; N92.6 Irregular menstruation, unspecified; F41.1 Generalized anxiety disorder; F33.0 Major depressive disorder, recurrent, mild; J45.20 Mild intermittent asthma, uncomplicated; Z80.0 Family history of malignant neoplasm of digestive organs; Z92.89 Personal history of other medical treatment | CPT/HCPCS: 81025; 96160 ==

== ENCOUNTER 2025-06-12 15:27 | Outpatient (AMB) | payer OTHER, SELFPAY ==
--- NOTE | 2025-06-12 15:30 | MHC.PC.OV ---
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 Allergies doxycycline (DOXYCYCLINE) Allergy (Unknown, Verified 06/12/25 16:39) STOMACH PAINS hydrocodone (From VICODIN) Allergy (Unknown, Verified 06/12/25 16:39) NAUSEA & VOMITING ibuprofen (IBUPROFEN) Allergy (Unknown, Verified 06/12/25 16:39) HIVES, SWELLING, hives nickel (NICKEL) Allergy (Unknown, Verified 06/12/25 16:39) RASH Doxycycline Hyclate Allergy (Unknown, Uncoded 06/12/25 15:31) stomach upset Medication List - Last Reconciled 06/12/25 by Susan Patel, MATERIALS PLANNING MANAGER- albuterol sulfate 90 mcg/actuation 2 puffs inhalation Q4H PRN bupropion HCl SR (Wellbutrin SR) 150 mg PO BID cetirizine (Zyrtec) 10 mg PO DAILY docusate sodium (Colace) 100 mg PO BEDTIME montelukast 10 mg PO BEDTIME multivitamin 1 tab PO DAILY naltrexone 25 mg (1/2 x 50 mg) PO BID norethindrone-e.estradiol-iron 1 mg-20 mcg (21)/75 mg (7) (08/08 ()) 1 tab PO DAILY paroxetine HCl (Paxil) 20 mg PO DAILY Tobacco use date assessed: 06/12/25 Dental Screening Dental Screen Date: 06/12/25 Did you have a dental visit in the last 12 months?: Yes Did you have a dental problem in the last 6 months where you did not have access to dental care?: No Was dental information given to patient?: Patient has dentist HPI HPI Comments History of Present Illness Details 35 y/o F with asthma, obesity, MDD, BING, family hx pancreatic ca Status post lumbar diskectomy 11/06/2024, status post cholecystectomy, Social recently ; moved to own house in [place]; with 1 son, Paddy age 3,works at [employer] in [place] Family history father with high cholesterol, anxiety, pancreatic cancer; mother with stroke, depression and anxiety Health Maintenance Tdap 2021 Flu declined Echo 03/31/2013 Pap smear 09/25/2016, Has upcoming appt 2024. [facility] [employer]ERICAL AND ADMINISTRAT[facility] WORK[facility] Bariatrics Optho wears glasses, no changes. Unsure of date of last exam History of Present Illness The patient is a 35 year old individual presenting for a telehealth visit for follow-up on weight loss management. Overweight: - The patient was started on bupropion 150 mg twice daily at the last visit to assist with weight loss. - The patient is also taking naltrexone twice a day. - The patient reports having lost no weight and feels the medication has not helped. - The patient's self-reported current weight is approximately 172-174 pounds, compared to 171 pounds at the last visit. Anxiety and Stress: - The patient reports experiencing significant stress and that the patient's anxiety is through the roof. - Major life stressors include filing for divorce, selling a house, and purchasing and moving into a new home. - The patient also reports stress from dealing with the patient's father's pancreatic cancer. Review of Systems - Constitutional: Reports no weight loss. - Psychiatric: Reports high levels of stress and anxiety. Physical Exam - This was a telehealth visit; a physical examination was not performed. - Vital Signs: Patient self-reports a weight of approximately 172-174 lbs. Assessment and Plan 1. Overweight - The patient reports no weight loss despite taking bupropion 150 mg BID and naltrexone BID. - The patient's weight has remained stable. - Given the lack of benefit, the plan is to add metformin, which is FDA-approved for weight loss, in addition to the current medications. - The prescription for metformin will be sent after the patient provides an exact weight via the patient portal. - The patient was instructed to take metformin one tablet once daily with food. - A follow-up telehealth visit is scheduled for approximately 12 weeks. 2. Anxiety and Stress - The patient reports severe anxiety and stress due to multiple significant life events, including a divorce, moving, and a parent's serious illness. - The current regimen of bupropion was initially chosen in part to help with mood. - Plan is to continue current medications. - The patient expects the stress to decrease in the coming weeks and will follow up in 12 weeks. Patient was given time to ask questions. All questions were answered to their satisfaction. Telehealth Attestation This visit was conducted via telehealth. The patient has been explained that this is an interactive (audio/video) telehealth encounter and what that consists of. The patient understands and wishes to proceed. Dapper platform was used. Total time spent caring for the patient today was 15 minutes. This includes time spent before the visit reviewing the chart, time spent during the visit, and time spent after the visit on documentation, reviewing laboratory results, diagnostic imaging, medications, performing a medically necessary evaluation, counseling on diagnoses, care coordination, ordering appropriate tests, ordering appropriate medications, review of tests performed by other providers, reporting test results with the patient, communication with other healthcare providers. [facility] Medical History Anxiety Degenerative arthritis Back pain Depression Asthma Surgical History Previous back surgery Hx of wisdom tooth extraction Hx of eye surgery Hx of section Hx of cholecystectomy Family History Mother Mental health disorder Asthma Stroke Father Mental health disorder Substance abuse High cholesterol Asthma Maternal Grandmother Cancer Paternal Grandmother Cancer Thyroid disorder Maternal Uncle Cancer Social History (Updated 03/24/25 @ 15:09 by Kathleen Booker CMA) Household Members: Spouse and Children Both parents involved: No Caregiver staying overnight: No Housing: House Are you a primary care transitions nurse to a significant other at home: Yes Do you presently have visiting nurse or other home services: No 75 years or older and lives alone: No Alcohol intake: current Alcohol intake frequency: holidays/special occasions only Patient Tobacco Use Status: Never used Tobacco e-Cigarette/Vaping Use: Never Used Second Hand Smoke Exposure: No Current occupational status: employed Current occupation: [employer] Cognitive needs: No Hearing needs: No Vision needs: Yes (wear glasses) Questionnaire Thrive Questionnaire Date Thrive assessed: 07/26/24 I am a: Patient What is your living situation today?: I have a steady place to live Within the past 12 months, did the food you bought not last and you didn't have the money to get more?: Never true Within the past 12 months, did you worry whether your food would run out before you got money to buy more?: Never true Do you have trouble paying for medicines?: No Do you have trouble getting transportation to medical appointments?: No Do you have trouble paying your heating and electricity bill?: No Do you have trouble taking care of your child, family member or friend?: No Do you have trouble with day-to-day activities such as bathing, preparing meals, shopping, managing finances, etc.?: No Are you currently unemployed and looking for a job?: No Are you interested in more education?: No Please select the resources that you would like help with: None Currently or been in a relationship where the following occur: No concerns reported THRIVE Score: 0 BING-7 AMB Questionnaire BING-7 Date BING - 7 assessed: 08/02/24 Source: Developed by Drs. Khurram Garcia, Yecenia Singer, Govind Gandhi and colleagues, with an educational daylin from [email or web address]. Physical exam (Primary Care) Tobacco/Smoking Status: Tobacco use Status Tobacco use date assessed 06/12/25 06/12/25 15:31 Patient Tobacco Use Status Never used Tobacco 06/12/25 15:31 e-Cigarette/Vaping Use Never Used 06/12/25 15:31 Thrive Assessment: Date of Thrive Assessment Date Thrive assessed 07/26/24 06/12/25 15:31 Currently or been in a relationship where the following occur: No concerns reported Telehealth Telehealth Telehealth Platform: [facility] Location of provider rendering services: practice address Location of patient: address on file Patient Identification confirmed using: Name, : Yes Telehealth method: voice only Patient verbally consented to treatment: Yes Patient verbally consented to billing insurance company: Yes Patient informed of any privacy concerns related to visit: Yes Minutes spent on Phone/Video with Pt.: 8 Coding Level of Care Code Tele Est Pt Level 2 (35721) Complex visit Add On G2211 Diagnoses Obesity (BMI 30-39.9) E66.9 BING (generalized anxiety disorder) F41.1 Influenza vaccination declined Z. Assessment & Plan Assessment & Plan (1) Obesity (BMI 30-39.9): Code(s): E66.9 - Obesity, unspecified Category: Medical (2) BING (generalized anxiety disorder): Code(s): F41.1 - Generalized anxiety disorder Category: Medical (3) Influenza vaccination declined: Onset Date: ~06/12/25 Code(s): Z28.21 - Immunization not carried out because of patient refusal Category: Medical Plan .
--- OUTSIDE RECORDS SUMMARY | 2025-06-12 20:03 | XMS_ITS | Clinical Summary ---
Author Organization [facility] ity Address [address] [place] [address] Care Team Providers Care Computer Support Specialist Instructor Name Role Phone Unavailable Primary Care Provider [...] 10:30 AM EDT Office Visit Bariatric Surgery [facility] [address] [place] [address] Charles Martinez MD [address] [place] [phone] Health Maintenance Due Date Last Done Comments Hepatitis B Vaccines (1 of 3 - 19+ 3-dose series) 2008 Cervical Cancer Screening: P ap Smear 2010 HPV Vaccines (1 - 3-dose SCD M series) 2016 HIV Screening 06/14/2024 Social Influencers of Health Screening 06/14/2024 Depression Screening 07/20/2024 COVID-19 Vaccine (4 - 2024-2 6 season) 2025 04/29/2021, 07/29/2020, 07/07/2020 Influenza Vaccine (#1) 2025 DTaP,Tdap,and Td Vaccines (2 - Td or Tdap) 11/01/2031 10/31/2021 RSV Immunization Adult Patients (1 - 1-dose 75+ series) 2064 Hepatitis C Screening Completed 06/19/2021 HIB Vaccines Aged Out No longer eligi [...]
== END 2025-06-12 16:48 | disposition home or self-care (01) ==
LOC: HO.HMCFM 15:27
PROVIDERS: PCP Nurse Practitioner Family; Visit Provider Nurse Practitioner Family
DX: E66.9 Obesity, unspecified (principal); F41.1 Generalized anxiety disorder; Z68.30 Body mass index [BMI] 30.0-30.9, adult